=== PATIENT | female | born 1990 | race Caucasian/White ===

== ENCOUNTER 2017-03-04 22:24 | Emergency (ER) | payer MEDICAID ==
[~2017-03-04] VITALS: Ht 177.8 cm; Wt 127.0 kg
--- NOTE | 2017-03-04 22:32 | ER Report ---
History and Physical Time Seen By MD: 22:31 HPI/ROS CHIEF COMPLAINT: Right flank pain, right lower quadrant pain HISTORY OF PRESENT ILLNESS: 26-year-old female presents ambulatory to the ER complaining of right flank pain radiating to her right lower quadrant since this morning. Patient reports she has a history of several kidney stones. She notes some hematuria. She is status post hysterectomy. Patient also notes history of frequent recurrent UTIs. Patient notes 9/10 pain, colicky in nature. She notes no alleviating or exacerbating factors REVIEW OF SYSTEMS: Respiratory: No cough, no dyspnea. Cardiovascular: No chest pain, no palpitations. Gastrointestinal: As above Musculoskeletal: As above Allergies: Coded Allergies: NSAIDS (Non-Steroidal Anti-Inflamma (Verified Allergy, Mild, UNKNOWN, 03/04) cephalexin (Verified Allergy, Mild, RASH, 03/04/17) latex (Verified Allergy, Mild, RASH, 03/04/17) prednisone (Verified Allergy, Mild, HIVES, 03/04/17) Home Meds Active Scripts Hydrocodone Bit/Acetaminophen (NORCO 5-325 TABLET) 1 Each Tablet, 1 EACH PO Q4H Y for PAIN, #10 TAB Prov:CIPRIANO KERR DO 03/05/17 Reviewed Nurses Notes: Yes Old Medical Records Reviewed: Yes Constitutional Vital Sign - Last 24 Hours 03/04/17 03/04/17 03/04/17 03/04/17 22:32 23:40 23:45 23:55 Pulse 95 90 86 88 Resp 14 14 16 B/P (MAP) 145/101 (116) 158/99 (118) Pulse Ox 97 95 93 93 O2 Delivery Room Air Room Air Room Air 03/05/17 03/05/17 03/05/17 03/05/17 00:00 00:30 01:00 01:30 Pulse 85 85 B/P (MAP) 140/90 (107) 129/99 (109) 143/100 (114) Pulse Ox 92 94 03/05/17 02:01 Pulse 86 Resp 14 B/P (MAP) 150/90 (110) Pulse Ox 97 O2 Delivery Room Air Physical Exam General Appearance: The patient is alert, has no immediate need for airway protection and no current signs of toxicity. Eyes: Pupils equal and round no injection. Respiratory: Chest is non tender, lungs are clear to auscultation. Cardiac: regular rate and rhythm Gastrointestinal: Abdomen is soft and non tender, no masses, bowel sounds normal , Mild right lower quadrant tenderness, no rebound or guarding, Positive right CVA tenderness Musculoskeletal: Neck: Neck is supple and non tender. Extremities have full range of motion and are non tender. Skin: No rashes or lesions. DIFFERENTIAL DIAGNOSIS: After history and physical exam differential diagnosis was considered for flank pain including but not limited to musculoskeletal causes, kidney stone, pyelonephritis, shingles, and intra-abdominal causes such as diverticulitis and appendicitis. Additionally,abdominal pain including but not limited to appendicitis, cholecystitis, gastritis, ovarian cysts, ovarian rupture, and urinary tract infection. Medical Decision Making Data Points Result Diagram: 03/04/17224803/04/172248 Laboratory Hematology Test 03/04/17 22:31 03/04/17 22:49 Urine Color Yellow Urine Clarity Slightly-cloudy Urine pH 6.0 pH (4.8-9.5) Urine Specific [place] 1.006 Urine Protein Negative mg/dL (NEGATIVE) Urine Glucose (UA) Negative mg/dL (NEGATIVE) Urine Ketones Negative mg/dL (NEGATIVE) Urine Blood Large (NEGATIVE) Urine Nitrite Negative (NEGATIVE) Urine Bilirubin Negative (NEGATIVE) Urine Urobilinogen Negative mg/dL (0.2-1.9) Urine Leukocyte Esterase Negative (NEGATIVE) Urine RBC 204 /HPF (0-2/HPF) Urine WBC 1 /HPF (0-5/HPF) Urine Squamous Epithelial Cells Many /LPF (</=FEW) Urine Bacteria Few /HPF (NONE-FEW) Urine Mucus None /HPF (NONE-FEW) Urine HCG, Qualitative Negative (NEGATIVE) Red Blood Count 5.40 M/uL (4.17-5.56) Mean Corpuscular Volume 79.6 fL (80.0-96.0) Mean Corpuscular Hemoglobin 27.0 pg (26.0-33.0) Mean Corpuscular Hemoglobin Concent 33.9 g/dL (32.0-36.0) Red Cell Distribution Width 16.1 % (11.5-14.5) Mean Platelet Volume 7.1 fL (7.2-11.1) Neutrophils (%) (Auto) 68.9 % (39.4-72.5) Lymphocytes (%) (Auto) 23.1 % (17.6-49.6) Monocytes (%) (Auto) 6.0 % (4.1-12.4) Eosinophils (%) (Auto) 1.8 % (0.4-6.7) Basophils (%) (Auto) 0.2 % (0.3-1.4) Nucleated RBC Relative Count (auto) 0.1 /100WBC Neutrophils # (Auto) 9.6 K/uL (2.0-7.4) Lymphocytes # (Auto) 3.2 K/uL (1.3-3.6) Monocytes # (Auto) 0.8 K/uL (0.3-1.0) Eosinophils # (Auto) 0.2 K/uL (0.0-0.5) Basophils # (Auto) 0.0 K/uL (0.0-0.1) Nucleated RBC Absolute Count (auto) 0.01 K/uL Sodium Level 138 mmol/L (137-145) Potassium Level 3.4 mmol/L (3.5-5.0) Chloride Level 102 mmol/L (98-107) Carbon Dioxide Level 26 mmol/L (22-31) Blood Urea Nitrogen 5 mg/dl (7-18) Creatinine 0.70 mg/dl (0.52-1.04) Glomerular Filtration Rate Calc > 60.0 Random Glucose 94 mg/dl (75-110) Calcium Level 8.9 mg/dl (8.4-10.2) Total Bilirubin 0.4 mg/dl (0.2-1.3) Aspartate Amino Transf (AST/SGOT) 18 U/L (0-35) Alanine Aminotransferase (ALT/SGPT) 43 U/L (0-56) Alkaline Phosphatase 81 U/L (0-126) Total Protein 7.1 gm/dl (6.3-8.2) Albumin 3.8 g/dl (3.5-5.0) Amylase Level 57 U/L (0-110) Lipase 50 U/L (23-300) Chemistry Test 03/04/17 22:31 03/04/17 22:49 Urine Color Yellow Urine Clarity Slightly-cloudy Urine pH 6.0 pH (4.8-9.5) Urine Specific [place] 1.006 Urine Protein Negative mg/dL (NEGATIVE) Urine Glucose (UA) Negative mg/dL (NEGATIVE) Urine Ketones Negative mg/dL (NEGATIVE) Urine Blood Large (NEGATIVE) Urine Nitrite Negative (NEGATIVE) Urine Bilirubin Negative (NEGATIVE) Urine Urobilinogen Negative mg/dL (0.2-1.9) Urine Leukocyte Esterase Negative (NEGATIVE) Urine RBC 204 /HPF (0-2/HPF) Urine WBC 1 /HPF (0-5/HPF) Urine Squamous Epithelial Cells Many /LPF (</=FEW) Urine Bacteria Few /HPF (NONE-FEW) Urine Mucus None /HPF (NONE-FEW) Urine HCG, Qualitative Negative (NEGATIVE) White Blood Count 13.9 k/uL (4.5-11.0) Red Blood Count 5.40 M/uL (4.17-5.56) Hemoglobin 14.6 g/dL (12.0-16.0) Hematocrit 43.0 % (34.0-47.0) Mean Corpuscular Volume 79.6 fL (80.0-96.0) Mean Corpuscular Hemoglobin 27.0 pg (26.0-33.0) Mean Corpuscular Hemoglobin Concent 33.9 g/dL (32.0-36.0) Red Cell Distribution Width 16.1 % (11.5-14.5) Platelet Count 243 K/uL (150-450) Mean Platelet Volume 7.1 fL (7.2-11.1) Neutrophils (%) (Auto) 68.9 % (39.4-72.5) Lymphocytes (%) (Auto) 23.1 % (17.6-49.6) Monocytes (%) (Auto) 6.0 % (4.1-12.4) Eosinophils (%) (Auto) 1.8 % (0.4-6.7) Basophils (%) (Auto) 0.2 % (0.3-1.4) Nucleated RBC Relative Count (auto) 0.1 /100WBC Neutrophils # (Auto) 9.6 K/uL (2.0-7.4) Lymphocytes # (Auto) 3.2 K/uL (1.3-3.6) Monocytes # (Auto) 0.8 K/uL (0.3-1.0) Eosinophils # (Auto) 0.2 K/uL (0.0-0.5) Basophils # (Auto) 0.0 K/uL (0.0-0.1) Nucleated RBC Absolute Count (auto) 0.01 K/uL Glomerular Filtration Rate Calc > 60.0 Calcium Level 8.9 mg/dl (8.4-10.2) Total Bilirubin 0.4 mg/dl (0.2-1.3) Aspartate Amino Transf (AST/SGOT) 18 U/L (0-35) Alanine Aminotransferase (ALT/SGPT) 43 U/L (0-56) Alkaline Phosphatase 81 U/L (0-126) Total Protein 7.1 gm/dl (6.3-8.2) Albumin 3.8 g/dl (3.5-5.0) Amylase Level 57 U/L (0-110) Lipase 50 U/L (23-300) Urinalysis Test 03/04/17 22:31 Urine Color Yellow Urine Clarity Slightly-cloudy Urine pH 6.0 pH (4.8-9.5) Urine Specific [place] 1.006 Urine Protein Negative mg/dL (NEGATIVE) Urine Glucose (UA) Negative mg/dL (NEGATIVE) Urine Ketones Negative mg/dL (NEGATIVE) Urine Blood Large (NEGATIVE) Urine Nitrite Negative (NEGATIVE) Urine Bilirubin Negative (NEGATIVE) Urine Urobilinogen Negative mg/dL (0.2-1.9) Urine Leukocyte Esterase Negative (NEGATIVE) Urine RBC 204 /HPF (0-2/HPF) Urine WBC 1 /HPF (0-5/HPF) Urine Squamous Epithelial Cells Many /LPF (</=FEW) Urine Bacteria Few /HPF (NONE-FEW) Urine Mucus None /HPF (NONE-FEW) Urine HCG, Qualitative Negative (NEGATIVE) EKG/Imaging Imaging Results: CT scan of the abdomen and pelvis with IV contrast was obtained. The results of the study are COMPUTED TOMOGRAPHY ABDOMEN AND PELVIS WITH INTRAVENOUS CONTRAST DATE OF EXAM: 03/04/2017 11:14 PM INDICATION: Right flank pain. COMPARISON: None. TECHNIQUE: Contrast enhanced abdomen and pelvis CT performed during the injection of 75 ml of Isovue 370. Sagittal and coronal reconstructions were performed. One of the following dose optimization techniques was utilized in the performance of this exam: Automated exposure control; adjustment of the mA and/or kV according to the patient's size; or use of an iterative reconstruction technique. Specific details can be referenced in the facility's radiology CT exam operational policy. FINDINGS: Lung bases: Mild atelectasis. Liver and hepatic vasculature: Liver is moderately enlarged. No suspicious focal lesion or acute abnormality. Gallbladder and bile ducts: Normal. Spleen: Normal. Pancreas: Normal. Adrenals: Normal. Kidneys, ureters and bladder: Normal. Retroperitoneum and aorta: Normal. GI tract, mesentery and peritoneum: Normal, including normal appendix. Uterus and adnexa: Patient appears to have had a hysterectomy. There is a complex partially cystic structure in the pelvis that likely originates from the right adnexal area given that it appears to be associated with the right gonadal vein. No appreciable associated inflammatory change. The lesion measures approximately 6.2 x 5.1 cm. The dominant cystic component measures approximately 4.2 cm in diameter. Bones and soft tissues: No acute abnormality or suspicious lesion. Small fat- containing umbilical hernia. IMPRESSION: 1. Complex right adnexal lesion may represent an enlarged ovary with a dominant cystic component. In the setting of right-sided pain, torsion is a consideration. Recommend further evaluation with pelvic ultrasound. 2. Moderate hepatomegaly. Dr. Keller discussed this case with CIPRIANO KERR on 03/05/2017 12:22 AM. The study was read by the radiologist. I viewed the images myself on the PACS system. Results: Ultrasound of the pelvic ultrasound was obtained. The results of the study are Ultrasound of the pelvis: Indication: Right ovarian cyst. Evaluate for possible torsion. Technique: Transabdominal and transvaginal imaging, with Doppler. Comparison: CT scan dated 03/04/2017. Uterus: Surgically absent. Right ovary/adnexa: The right ovary measures 5.4 x 5.0 x 4.8 cm. A well- circumscribed cyst is present, measuring 4.5 x 4.2 x 4.2 cm. There is diffuse internal echogenicity within the cyst, suggesting hemorrhage. Doppler images demonstrate no evidence of flow signals within the cyst. Doppler evaluation of the unaffected right ovarian parenchyma demonstrates normal arterial and venous signals. There are no signs of ovarian torsion. No adnexal mass or fluid collection is identified. Left ovary/adnexa: The left ovary was removed. No adnexal mass or fluid collection is identified. Free fluid: None seen. IMPRESSION: 4.5 cm right ovarian cyst, which appears hemorrhagic. There are no signs of right ovarian torsion. The study was read by the radiologist. I viewed the images myself on the PACS system. ED Course/Re-evaluation ED Course Patient was admitted to an examination room. H&P was done. The dental diagnoses was considered. On clinical examination. Patient has significant right flank and right lower quadrant pain. Urinalysis has pink tinged urine with microscopic hematuria. Diagnostic evaluation is undertaken. CT scan is performed to evaluate for likely kidney stones from her clinical presentation. No kidney stones were noted. A large cystic right ovary was noted. Radiologist is concerned about possible torsion. Ultrasound is performed which shows a hemorrhagic ovarian cyst, no evidence of torsion. Patient's results are discussed with her. She feels better after Dilaudid 0.5 mg IV 2 and Zofran. She is unable to take NSAIDs. She is discharged home and advised to follow-up with her CERTIFIED ORTHOTIST PRACTICE MANAGER in [place]. Patient was given a prescription for hydrocodone for temporary pain relief. Decision to Disposition Date: Mar 05, 2017 Decision to Disposition Time: 01:49 Depart Departure Latest Vital Signs Vital Signs Date Time Temp Pulse Resp B/P (MAP) Pulse Ox O2 Delivery O2 Flow Rate FiO2 03/05/17 02:01 86 14 150/90 (110) 97 Room Air Impression: Primary Impression: Hemorrhagic cyst of right ovary Condition: Improved Disposition: HOME OR SELF-CARE New Scripts Hydrocodone Bit/Acetaminophen (NORCO 5-325 TABLET) 1 Each Tablet 1 EACH PO Q4H Y for PAIN, #10 TAB Prov: CIPRIANO KERR DO 03/05/17 Patient Instructions: Ovarian Cyst (ED) Additional Instructions: Apply heating pad to your abdomen Follow-up with your primary CERTIFIED ORTHOTIST PRACTICE MANAGER in [place] in one week CIPRIANO KERR DO Mar 04, 2017 22:31
[2017-03-04] MEDS ORDERED: NS(*) 0.9% 1000 ML BAG 1,000 ML IV ONE (22:37)
[2017-03-04] MEDS ORDERED: ONDANSETRON 4 MG/2 ML VIAL IVP ONE (22:40)
[2017-03-04] MEDS ORDERED: HYDROmorphone(ER ONLY) 1 MG/ML IVP ONE (22:40)
[2017-03-04 22:59] LABS: PLATELET COUNT, AUTOMATED 243 K/uL (150-450)
[2017-03-04] MEDS ORDERED: IOPAMIDOL 76% 75 ML INFUS BTL 75 ML ONE (23:19)
[2017-03-04] MEDS ORDERED: NS 0.9% 20 ML SDV 40 ML ONE (23:19)
[2017-03-04] MEDS ORDERED: NS 0.9% 20 ML SDV 20 ML ONE (23:25)
[2017-03-05] MEDS ORDERED: NS 0.9% 20 ML SDV 0 ML ONE (00:06)
--- NOTE | 2017-03-05 00:27 | RADIOLOGY IMAGING REPORT ---
FACILITY: [facility] PATIENT NAME: Madeleine Underwood : 1990 MR: [id number] V: [id number] EXAM DATE: ORDERING PHYSICIAN: CIPRIANO KERR TECHNOLOGIST: Location: [facility] Patient: Madeleine Underwood : 1990 Visit/Account:[id number] Date of Sevice: 03/04/2017 COMPUTED TOMOGRAPHY ABDOMEN AND PELVIS WITH INTRAVENOUS CONTRAST DATE OF EXAM: 03/04/2017 11:14 PM INDICATION: Right flank pain. COMPARISON: None. TECHNIQUE: Contrast enhanced abdomen and pelvis CT performed during the injection of 75 ml of Isovue 370. Sagittal and coronal reconstructions were performed. One of the following dose optimization te chniques was utilized in the performance of this exam: Automated exposure control; adjustment of the mA and/or kV according to the patient's size; or use of an iterative reconstruction technique. Spec [facility] details can be referenced in the facility's radiology CT exam operational policy. FINDINGS: Lung bases: Mild atelectasis. Liver and hepatic vasculature: Liver is moderately enlarged. No suspicious focal lesion or acute ab normality. Gallbladder and bile ducts: Normal. Spleen: Normal. Pancreas: Normal. Adrenals: Normal. Kidneys, ureters and bladder: Normal. Retroperitoneum and aorta: Normal. GI tract, mesentery and peritoneum: Normal, including normal appendix. Uterus and adnexa: Patient appears to have had a hysterectomy. There is a complex partially cystic s tructure in the pelvis that likely originates from the right adnexal area given that it appears to be associated with the right gonadal vein. No appreciable associated inflammatory change. The lesion measures approximately 6.2 x 5.1 cm. The dominant cystic component measures approximately 4.2 cm in diameter. Bones and soft tissues: No acute abnormality or suspicious lesion. Small fat-containing umbilical h ernia. IMPRESSION: 1. Complex right adnexal lesion may represent an enlarged ovary with a dominant cystic component. I n the setting of right-sided pain, torsion is a consideration. Recommend further evaluation with pel elo ultrasound. 2. Moderate hepatomegaly. Dr. Keller discussed this case with CIPRIANO KERR on 03/05/2017 12:22 AM. Report Dictated By: Fady Keller MD at 03/05/2017 12:11 AM Report E-Signed By: Fady Keller MD at 03/05/2017 12:22 AM WSN:[id number]
[2017-03-05] MEDS ORDERED: HYDROmorphone(ER ONLY) 1 MG/ML IVP ONE (00:45)
[2017-03-05] MEDS ORDERED: HYDR-4309 PO (01:51)
[2017-03-05] MEDS ORDERED: ACET/HYDROC 5/325MG TH ER ONLY 2 TAB/BOTTLE PO ONE (01:55)
[2017-03-05 02:01] VITALS: BP 150/90
--- NOTE | 2017-03-05 02:10 | RADIOLOGY IMAGING REPORT ---
FAC[place] [facility] [place]IENT NAME: Madeleine Underwood : 1990 MR: [id number] V: [id number] EXAM DATE: ORDERING PHYSICIAN: CIPRIANO KERR TECHNOLOGIST: Location: [facility] [place] Patient: Madeleine Underwood : 1990 Visit/Account:[id number] Date of Sevice: 03/05/2017 Ultrasound of the pelvis: Indication: Right ovarian cyst. Evaluate for possible torsion. Technique: Transabdominal and transvaginal imaging, with Doppler. Comparison: CT scan dated 03/04/2017. Uterus: Surgically absent. Right ovary/adnexa: The right ovary measures 5.4 x 5.0 x 4.8 cm. A well-circumscribed cyst is present , measuring 4.5 x 4.2 x 4.2 cm. There is diffuse internal echogenicity within the cyst, suggesting he morrhage. Doppler images demonstrate no evidence of flow signals within the cyst. Doppler evaluation of the unaffected right ovarian parenchyma demonstrates normal arterial and venous signals. There are no signs of ovarian torsion. No adnexal mass or fluid collection is identified. Left ovary/adnexa: The left ovary was removed. No adnexal mass or fluid collection is identified. Free fluid: None seen. IMPRESSION: 4.5 cm right ovarian cyst, which appears hemorrhagic. There are no signs of right ovarian torsion. Report Dictated By: Timothy Valdivia MD at 03/05/2017 1:58 AM Report E-Signed By: Timothy Valdivia MD at 03/05/2017 2:06 AM WSN:[id number]
== END 2017-03-05 02:02 | disposition home or self-care (01) ==
LOC: ER 22:28
DX: N83.201 Unspecified ovarian cyst, right side (principal)
CPT/HCPCS: 74177; 76856; 81001; 81025; 82150; 83690; 85025; 96361; 96374; 96375; 96376; 99284; J1170; J2405; J7030; J7050; Q9967; 82040; 82247; 82310; 82374; 82435; 82565; 82947; 84075; 84132; 84155; 84295; 84450; 84460; 84520

== ENCOUNTER 2017-03-29 00:25 | Emergency (ER) | payer MEDICAID ==
[~2017-03-29] VITALS: Ht 177.8 cm; Wt 133.8 kg
[~2017-03-29 00:25] MED LIST: HYDR-4309 PO
--- NOTE | 2017-03-29 00:36 | ER Report ---
History and Physical Time Seen By MD: 00:35 HPI/ROS CHIEF COMPLAINT: abdominal pain, frequent urination, possible infection in abdominal surgical incisions, cough. HISTORY OF PRESENT ILLNESS: This is a 26 year old female. She had surgery last Friday, 7 days ago, for right oophorectomy. Laparoscopic surgery. Had one of the stitches rupture on her umbilical incision. Also had a dog climb on her lap and the dogs foot dug into this area. States that it is painful and draining pus. The last 2 days has had severe lower suprapubic abdominal pain. States that she had frequent urination, every 30-60 minutes. Feels like she is having fevers and chills, but has had 7 days of upper respiratory symptoms including cough, runny nose, congestion, sore throat which have not been improving. Feels like she is having fevers off and on. Having some chronic constipation, but a normal bowel movement tonight. No nausea or vomiting. Has been trying to contact her surgeon, but unable over the last few days. Having some bruising on the left lower abdomen around one of the surgical incisions. REVIEW OF SYSTEMS: Constitutional: As above. Eyes: No discharge. No vision changes. ENT: As above. Cardiovascular: No chest pain. No palpitations. Respiratory: As above. Gastrointestinal: As above. Genitourinary: As above. Musculoskeletal: No back pain. No extremity pain. Skin: As above. Neurological: No weakness. No headache. Allergies: Coded Allergies: NSAIDS (Non-Steroidal Anti-Inflamma (Verified Allergy, Mild, UNKNOWN, 03/29) cephalexin (Verified Allergy, Mild, RASH, 03/29/17) latex (Verified Allergy, Mild, RASH, 03/29/17) prednisone (Verified Allergy, Mild, HIVES, 03/29/17) Home Meds Active Scripts Hydrocodone Bit/Acetaminophen (HYDROCODON-ACETAMINOPHEN 5-325) 1 Each Tablet, 1 EACH PO Q4H Y for PAIN, #8 TAB 0 Refills Prov:JOSE ALFREDO MARCOS MD 03/29/17 Amoxicillin (AMOXICILLIN) 500 Mg Capsule, 1 CAP PO Q8H, #21 CAPSULE 0 Refills Prov:JOSE ALFREDO MARCOS MD 03/29/17 Discontinued Scripts Hydrocodone Bit/Acetaminophen (NORCO 5-325 TABLET) 1 Each Tablet, 1 EACH PO Q4H Y for PAIN, #10 TAB Prov:CIPRIANO KERR DO 03/05/17 Reviewed Nurses Notes: Yes Hx Substance Use Disorder: No Hx Alcohol Use: No Constitutional Vital Sign - Last 24 Hours 03/29/17 03/29/17 03/29/17 03/29/17 00:25 00:31 00:33 00:55 Temp 97.5 Pulse ??? 98 92 Resp 18 B/P (MAP) 157/105 (122) 157/105 Pulse Ox 97 95 O2 Delivery Room Air 03/29/17 03/29/17 03/29/17 03/29/17 01:00 01:30 02:00 02:05 Pulse 93 B/P (MAP) 145/85 (105) 124/79 (94) 132/114 (120) Pulse Ox 93 03/29/17 03/29/17 03/29/17 03/29/17 03:00 03:30 03:35 03:46 Pulse 95 85 Resp 16 B/P (MAP) 159/109 (126) 144/85 (104) 132/85 (101) Pulse Ox 96 92 O2 Delivery Room Air Physical Exam General Appearance: The patient is alert. No acute distress. Non-toxic in appearance. Eyes: Pupils are equal, round. No pallor, injection or icterus. ENT: Mucous membranes are moist. Oral mucosa is sydnee, but posterior oropharynx with erythema and post nasal drainage. Nasal mucosa also erythematous. TM have effusions bilaterally, but no redness or bulging and canals are normal. Neck: Supple and non tender. Respiratory: Lungs are clear to auscultation. Cardiovascular: Regular rate and rhythm. No murmurs, gallops or rubs. Normal capillary refill. No edema. Gastrointestinal: Abdomen is diffusely discomfort, with tenderness across the suprapubic area. Nondistended. Guarding lower abdomen but no rebound. No masses or organomegaly. Normal active bowel sounds. No costovertebral angle tenderness with percussion. Neurological: Alert and oriented x3. Skin: Warm and dry. Has bruising left lower abdomen. Umbilical incision is tender to palpation with mild erythema surrounding. No active drainage at this time. Musculoskeletal: Extremities are nontender. DIFFERENTIAL DIAGNOSIS: After history and physical exam, differential diagnosis was considered for several different concerns, one that sounds like urinary infection after surgery, to abdominal pain which could be related to urinary infection or post surgical changes. We need to rule out abscess versus torsion versus other problem in the abdomen. She is also having continued symptoms of upper respiratory infection, likely viral syndrome versus influenza. Medical Decision Making Data Points Result Diagram: 03/29/17 0058 03/29/17 0058 Laboratory Hematology Test 03/29/17 00:27 03/29/17 00:58 Urine Color Straw Urine Clarity Clear Urine pH 6.0 pH (4.8-9.5) Urine Specific [place] 1.004 Urine Protein Negative mg/dL (NEGATIVE) Urine Glucose (UA) Negative mg/dL (NEGATIVE) Urine Ketones Negative mg/dL (NEGATIVE) Urine Blood Negative (NEGATIVE) Urine Nitrite Negative (NEGATIVE) Urine Bilirubin Negative (NEGATIVE) Urine Urobilinogen Negative mg/dL (0.2-1.9) Urine Leukocyte Esterase Negative (NEGATIVE) Urine RBC <1 /HPF (0-2/HPF) Urine WBC <1 /HPF (0-5/HPF) Urine Squamous Epithelial Cells Many /LPF (</=FEW) Urine Bacteria Few /HPF (NONE-FEW) Urine Mucus None /HPF (NONE-FEW) Red Blood Count 5.82 M/uL (4.17-5.56) Mean Corpuscular Volume 79.4 fL (80.0-96.0) Mean Corpuscular Hemoglobin 26.6 pg (26.0-33.0) Mean Corpuscular Hemoglobin Concent 33.5 g/dL (32.0-36.0) Red Cell Distribution Width 15.4 % (11.5-14.5) Mean Platelet Volume 7.0 fL (7.2-11.1) Neutrophils (%) (Auto) 68.8 % (39.4-72.5) Lymphocytes (%) (Auto) 21.3 % (17.6-49.6) Monocytes (%) (Auto) 6.7 % (4.1-12.4) Eosinophils (%) (Auto) 2.0 % (0.4-6.7) Basophils (%) (Auto) 1.2 % (0.3-1.4) Nucleated RBC Relative Count (auto) 0.0 /100WBC Neutrophils # (Auto) 8.6 K/uL (2.0-7.4) Lymphocytes # (Auto) 2.7 K/uL (1.3-3.6) Monocytes # (Auto) 0.8 K/uL (0.3-1.0) Eosinophils # (Auto) 0.3 K/uL (0.0-0.5) Basophils # (Auto) 0.1 K/uL (0.0-0.1) Nucleated RBC Absolute Count (auto) 0.00 K/uL Sodium Level 138 mmol/L (137-145) Potassium Level 3.6 mmol/L (3.5-5.0) Chloride Level 100 mmol/L (98-107) Carbon Dioxide Level 26 mmol/L (22-31) Blood Urea Nitrogen 9 mg/dl (7-18) Creatinine 0.80 mg/dl (0.52-1.04) Glomerular Filtration Rate Calc > 60.0 Random Glucose 98 mg/dl (75-110) Lactate 1.6 mmol/L (0.7-2.1) Calcium Level 9.2 mg/dl (8.4-10.2) Total Bilirubin 0.4 mg/dl (0.2-1.3) Aspartate Amino Transf (AST/SGOT) 23 U/L (0-35) Alanine Aminotransferase (ALT/SGPT) 42 U/L (0-56) Alkaline Phosphatase 85 U/L (0-126) C-Reactive Protein 1.4 mg/dl (<1.0) Total Protein 7.2 gm/dl (6.3-8.2) Albumin 3.8 g/dl (3.5-5.0) Human Chorionic Gonadotropin, Qual Negative (NEGATIVE) Influenza Virus Type A (PCR) Negative (NEGATIVE) Influenza Virus Type B (PCR) Negative (NEGATIVE) Chemistry Test 03/29/17 00:27 03/29/17 00:58 Urine Color Straw Urine Clarity Clear Urine pH 6.0 pH (4.8-9.5) Urine Specific [place] 1.004 Urine Protein Negative mg/dL (NEGATIVE) Urine Glucose (UA) Negative mg/dL (NEGATIVE) Urine Ketones Negative mg/dL (NEGATIVE) Urine Blood Negative (NEGATIVE) Urine Nitrite Negative (NEGATIVE) Urine Bilirubin Negative (NEGATIVE) Urine Urobilinogen Negative mg/dL (0.2-1.9) Urine Leukocyte Esterase Negative (NEGATIVE) Urine RBC <1 /HPF (0-2/HPF) Urine WBC <1 /HPF (0-5/HPF) Urine Squamous Epithelial Cells Many /LPF (</=FEW) Urine Bacteria Few /HPF (NONE-FEW) Urine Mucus None /HPF (NONE-FEW) White Blood Count 12.5 k/uL (4.5-11.0) Red Blood Count 5.82 M/uL (4.17-5.56) Hemoglobin 15.5 g/dL (12.0-16.0) Hematocrit 46.3 % (34.0-47.0) Mean Corpuscular Volume 79.4 fL (80.0-96.0) Mean Corpuscular Hemoglobin 26.6 pg (26.0-33.0) Mean Corpuscular Hemoglobin Concent 33.5 g/dL (32.0-36.0) Red Cell Distribution Width 15.4 % (11.5-14.5) Platelet Count 263 K/uL (150-450) Mean Platelet Volume 7.0 fL (7.2-11.1) Neutrophils (%) (Auto) 68.8 % (39.4-72.5) Lymphocytes (%) (Auto) 21.3 % (17.6-49.6) Monocytes (%) (Auto) 6.7 % (4.1-12.4) Eosinophils (%) (Auto) 2.0 % (0.4-6.7) Basophils (%) (Auto) 1.2 % (0.3-1.4) Nucleated RBC Relative Count (auto) 0.0 /100WBC Neutrophils # (Auto) 8.6 K/uL (2.0-7.4) Lymphocytes # (Auto) 2.7 K/uL (1.3-3.6) Monocytes # (Auto) 0.8 K/uL (0.3-1.0) Eosinophils # (Auto) 0.3 K/uL (0.0-0.5) Basophils # (Auto) 0.1 K/uL (0.0-0.1) Nucleated RBC Absolute Count (auto) 0.00 K/uL Glomerular Filtration Rate Calc > 60.0 Lactate 1.6 mmol/L (0.7-2.1) Calcium Level 9.2 mg/dl (8.4-10.2) Total Bilirubin 0.4 mg/dl (0.2-1.3) Aspartate Amino Transf (AST/SGOT) 23 U/L (0-35) Alanine Aminotransferase (ALT/SGPT) 42 U/L (0-56) Alkaline Phosphatase 85 U/L (0-126) C-Reactive Protein 1.4 mg/dl (<1.0) Total Protein 7.2 gm/dl (6.3-8.2) Albumin 3.8 g/dl (3.5-5.0) Human Chorionic Gonadotropin, Qual Negative (NEGATIVE) Influenza Virus Type A (PCR) Negative (NEGATIVE) Influenza Virus Type B (PCR) Negative (NEGATIVE) Urinalysis Test 03/29/17 00:27 Urine Color Straw Urine Clarity Clear Urine pH 6.0 pH (4.8-9.5) Urine Specific [place] 1.004 Urine Protein Negative mg/dL (NEGATIVE) Urine Glucose (UA) Negative mg/dL (NEGATIVE) Urine Ketones Negative mg/dL (NEGATIVE) Urine Blood Negative (NEGATIVE) Urine Nitrite Negative (NEGATIVE) Urine Bilirubin Negative (NEGATIVE) Urine Urobilinogen Negative mg/dL (0.2-1.9) Urine Leukocyte Esterase Negative (NEGATIVE) Urine RBC <1 /HPF (0-2/HPF) Urine WBC <1 /HPF (0-5/HPF) Urine Squamous Epithelial Cells Many /LPF (</=FEW) Urine Bacteria Few /HPF (NONE-FEW) Urine Mucus None /HPF (NONE-FEW) EKG/Imaging Imaging PORTABLE CHEST: Indication: Cough. Recent history of ovarian surgery. Technique: A single frontal film was obtained. Comparison: None. Skeletal and soft tissue structures: Intact and unremarkable. Heart and mediastinum: Within normal limits. Lung chaney: Well-expanded and clear. Pleural spaces: Unremarkable. Impression: No acute process. Report Dictated By: Timothy Valdivia MD at 03/29/2017 2:[address] of the abdomen and pelvis with contrast: Indication: Abdominal pain. Recent history of ovarian surgery. Technique: Helical CT was performed through the abdomen and pelvis following IV contrast enhancement with 75 cc of Isovue-370. Multiplanar reconstructions are reviewed. One of the following dose optimization techniques was utilized in the performance of this exam: Automated exposure control; adjustment of the mA and/ or kV according to the patient's size; or use of an iterative reconstruction technique. Specific details can be referenced in the facility's radiology CT exam operational policy. Comparison: 03/04/2017 Lower lung chaney: No parenchymal or pleural abnormality is identified. Liver: Enlarged, but homogeneous in density. No focal liver lesions are identified. There is uniform enhancement of the portal venous structures. Gallbladder/biliary tree: The gallbladder is normal in size and homogeneous in density. The bile ducts are normal in caliber. Pancreas: Normal in size, shape, and density. Spleen: Normal in size, shape, and density. Adrenal glands: Within normal limits. Kidneys/urinary bladder: The kidneys are normal in size, shape, and density. There are no signs of obstructive uropathy. The urinary bladder is homogeneous and unremarkable, as visualized. Intestinal structures: Unremarkable, as visualized. There are no signs of obstruction or focal inflammatory changes. The appendix appears normal. Pelvis: The previously described complex right adnexal mass is no longer present. The uterus is absent, as previously noted. There are no signs of inflammatory process, fluid collection, or free fluid in the pelvis. Aorta and vascular structures: Within normal limits. Ascites or fluid collections: None seen. Skeletal structures: Intact and unchanged. There are unremarkable postoperative changes in the lower abdominal wall. There are no signs of abdominal wall hematoma or fluid collection. Impression: No acute process is identified in the abdomen or pelvis. The previous study described complex right adnexal mass is no longer present. Report Dictated By: Timothy Valdivia MD at 03/29/2017 2:34 AM Ultrasound of the pelvis: Indication: Pelvic pain. Recent history of ovarian surgery. Technique: Transvaginal imaging, with Doppler. Comparison: 03/05/2017 Uterus: Absent. No mass or fluid collection is identified in the midline. Right ovary/adnexa: The right ovary is absent. No mass or fluid collection is identified. Left ovary/adnexa: The left ovary is absent. No mass or fluid collection is identified. Free fluid: None seen. IMPRESSION: No mass or fluid collection is identified in the pelvis. Report Dictated By: Timothy Valdivia MD at 03/29/2017 3:18 AM ED Course/Re-evaluation Clinical Indication for ER IV: Hydration, IV Access ED Course Mild elevation of white blood cell count. Mild elevation of CRP. Normal metabolic panel. Normal urinalysis. Negative influenza. Negative chest x-ray. No abnormalities noted on ultrasound or on CT scan. Morphine 2mg IV given for pain and Zofran 4mg IV given for nausea with the morphine. Reviewed findings with the patient and she will start on the Amoxicillin for the mild cellulitis around the umbilicus and follow-up with her surgeon for re-evaluation. Small prescription for Lortab to use for more severe pain. Decision to Disposition Date: Mar 29, 2017 Decision to Disposition Time: 03:40 Depart Departure Latest Vital Signs Vital Signs Date Time Temp Pulse Resp B/P (MAP) Pulse Ox O2 Delivery O2 Flow Rate FiO2 03/29/17 03:46 85 16 132/85 (101) 92 Room Air 03/29/17 00:33 97.5 Impression: Primary Impression: Cellulitis Additional Impression: Abdominal pain Condition: Improved Disposition: HOME OR SELF-CARE Referrals: WAGNER KING MD (PCP) New Scripts Hydrocodone Bit/Acetaminophen (HYDROCODON-ACETAMINOPHEN 5-325) 1 Each Tablet 1 EACH PO Q4H Y for PAIN, #8 TAB 0 Refills Prov: JOSE ALFREDO MARCOS MD 03/29/17 Amoxicillin (AMOXICILLIN) 500 Mg Capsule 1 CAP PO Q8H, #21 CAPSULE 0 Refills Prov: JOSE ALFREDO MARCOS MD 03/29/17 Patient Instructions: Abdominal Pain (ED), Cellulitis (ED) Additional Instructions: Call your regular doctor for reevaluation. Take the antibiotic Amoxicillin 500mg three times a day for 7 days. Wash the abdominal incision twice a day with soap and water. Keep clean and dry otherwise. Take Lortab 5/325, one every 4 hours as needed for pain. Problem Qualifiers Primary Impression: Cellulitis Site of cellulitis: trunk Site of cellulitis of trunk: abdominal wall Qualified Codes: L03.311 - Cellulitis of abdominal wall Additional Impression: Abdominal pain Abdominal location: lower abdomen, unspecified Qualified Codes: R10.30 - Lower abdominal pain, unspecified JOSE ALFREDO MARCOS MD Mar 29, 2017 00:36
[2017-03-29] MEDS ORDERED: NS(*) 0.9% 10 ML VIAL 20 ML ONE (00:54)
[2017-03-29] MEDS ORDERED: IOPAMIDOL 76% 75 ML INFUS BTL 75 ML ONE (00:54)
[2017-03-29 01:08] LABS: PLATELET COUNT, AUTOMATED 263 K/uL (150-450)
[2017-03-29] MEDS ORDERED: MORPHINE 2 MG/ML SYR IVP ONE (01:50)
[2017-03-29] MEDS ORDERED: ONDANSETRON 4 MG/2 ML VIAL IVP ONE (01:50)
--- NOTE | 2017-03-29 02:37 | RADIOLOGY IMAGING REPORT ---
FACILITY: [facility] - [place] PATIENT NAME: Madeleine Underwood : 1990 MR: [id number] V: [id number] EXAM DATE: ORDERING PHYSICIAN: JOSE ALFREDO MARCOS TECHNOLOGIST: Location: [facility] - [place] Patient: Madeleine Underwood : 1990 Visit/Account:[id number] Date of Sevice: 03/29/2017 PORTABLE CHEST: Indication: Cough. Recent history of ovarian surgery. Technique: A single frontal film was obtained. Comparison: None. Skeletal and soft tissue structures: Intact and unremarkable. Heart and mediastinum: Within normal limits. Lung chaney: Well-expanded and clear. Pleural spaces: Unremarkable. Impression: No acute process. Report Dictated By: Timothy Valdivia MD at 03/29/2017 2:32 AM Report E-Signed By: Timothy Valdivia MD at 03/29/2017 2:34 AM WSN:[id number]
--- NOTE | 2017-03-29 02:49 | RADIOLOGY IMAGING REPORT ---
FACILITY: [facility] - [place] PATIENT NAME: Madeleine Underwood : 1990 MR: [id number] V: [id number] EXAM DATE: ORDERING PHYSICIAN: JOSE ALFREDO MARCOS TECHNOLOGIST: [place] [facility] [place]: Madeleine Underwood : 1990 Visit/Account:[id number] Date of Sevice: 03/29/2017 CT of the abdomen and pelvis with contrast: Indication: Abdominal pain. Recent history of ovarian surgery. Technique: Helical CT was performed through the abdomen and pelvis following IV contrast enhancement with 75 cc of Isovue-370. Multiplanar reconstructions are reviewed. One of the following dose optimization techniques was utilized in the performance of this exam: Autom ated exposure control; adjustment of the mA and/or kV according to the patient's size; or use of an i terative reconstruction technique. Specific details can be referenced in the facility's radiology C T exam operational policy. Comparison: 03/04/2017 Lower lung chaney: No parenchymal or pleural abnormality is identified. Liver: Enlarged, but homogeneous in density. No focal liver lesions are identified. There is uniform enhancement of the portal venous structures. Gallbladder/biliary tree: The gallbladder is normal in size and homogeneous in density. The bile duct s are normal in caliber. Pancreas: Normal in size, shape, and density. Spleen: Normal in size, shape, and density. Adrenal glands: Within normal limits. Kidneys/urinary bladder: The kidneys are normal in size, shape, and density. There are no signs of ob structive uropathy. The urinary bladder is homogeneous and unremarkable, as visualized. Intestinal structures: Unremarkable, as visualized. There are no signs of obstruction or focal inflam matory changes. The appendix appears normal. Pelvis: The previously described complex right adnexal mass is no longer present. The uterus is absen t, as previously noted. There are no signs of inflammatory process, fluid collection, or free fluid i n the pelvis. Aorta and vascular structures: Within normal limits. Ascites or fluid collections: None seen. Skeletal structures: Intact and unchanged. There are unremarkable postoperative changes in the lower abdominal wall. There are no signs of abdom inal wall hematoma or fluid collection. Impression: No acute process is identified in the abdomen or pelvis. The previous study described com plex right adnexal mass is no longer present. Report Dictated By: Timothy Valdivia MD at 03/29/2017 2:34 AM Report E-Signed By: Timothy Valdivia MD at 03/29/2017 2:45 AM WSN:[id number]
--- NOTE | 2017-03-29 03:24 | RADIOLOGY IMAGING REPORT ---
FACILITY: [facility] PATIENT NAME: Madeleine Underwood : 1990 MR: [id number] V: [id number] EXAM DATE: ORDERING PHYSICIAN: JOSE ALFREDO MARCOS TECHNOLOGIST: Location: [facility] Patient: Madeleine Underwood : 1990 Visit/Account:[id number] Date of Sevice: 03/29/2017 Ultrasound of the pelvis: Indication: Pelvic pain. Recent history of ovarian surgery. Technique: Transvaginal imaging, with Doppler. Comparison: 03/05/2017 Uterus: Absent. No mass or fluid collection is identified in the midline. Right ovary/adnexa: The right ovary is absent. No mass or fluid collection is identified. Left ovary/adnexa: The left ovary is absent. No mass or fluid collection is identified. Free fluid: None seen. IMPRESSION: No mass or fluid collection is identified in the pelvis. Report Dictated By: Timothy Valdivia MD at 03/29/2017 3:18 AM Report E-Signed By: Timothy Valdivia MD at 03/29/2017 3:21 AM WSN:[id number]
[2017-03-29] MEDS ORDERED: ACET/HYDROC 5/325MG TH ER ONLY 2 TAB/BOTTLE PO ONE (03:40)
[2017-03-29] MEDS ORDERED: AMOXICILLIN 500 MG CAP PO ONE (03:40)
[2017-03-29] MEDS ORDERED: AMOX-362 PO (03:43)
[2017-03-29] MEDS ORDERED: LOR5/325 PO (03:43)
[2017-03-29 03:46] VITALS: BP 132/85
== END 2017-03-29 03:50 | disposition home or self-care (01) ==
LOC: ER 00:31
DX: L03.311 Cellulitis of abdominal wall (principal); R10.30 Lower abdominal pain, unspecified
CPT/HCPCS: 71045; 74177; 76830; 81001; 83605; 84703; 85025; 86140; 87502; 96374; 96375; 99284; J2270; J2405; Q9967; 82040; 82247; 82310; 82374; 82435; 82565; 82947; 84075; 84132; 84155; 84295; 84450; 84460; 84520

== ENCOUNTER 2017-06-09 17:45 | Emergency (ER) | payer MEDICAID ==
[~2017-06-09 17:45] MED LIST changes: +AMOX-362 PO; +LOR5/325 PO
[2017-06-09 18:58] VITALS: BP 142/96
--- NOTE | 2017-06-09 18:58 | ER Report ---
History and Physical Time Seen By MD: 18:57 HPI/ROS CHIEF COMPLAINT: Toothache HISTORY OF PRESENT ILLNESS: 26-year-old female is ambulatory complaining of right lower jaw pain. She has a history of a severe infection of her left lower jaw in the distant past. Patient was recently diagnosed with ovarian cancer. Patient notes no fever or chills. Patient denies any difficulty swallowing. She's complaining of severe toothache in the right lower jaw for 3 days. Patient notes severe nausea, but she's had no vomiting. REVIEW OF SYSTEMS: Respiratory: No cough, no dyspnea. Cardiovascular: No chest pain, no palpitations. Gastrointestinal: No vomiting, no abdominal pain. Musculoskeletal: No back pain. Allergies: Coded Allergies: NSAIDS (Non-Steroidal Anti-Inflamma (Verified Allergy, Mild, UNKNOWN, 06/09) cephalexin (Verified Allergy, Mild, RASH, 06/09/17) latex (Verified Allergy, Mild, RASH, 06/09/17) prednisone (Verified Allergy, Mild, HIVES, 06/09/17) Home Meds Active Scripts Ondansetron Hcl (ZOFRAN) 4 Mg Tablet, 4 MG PO Q6H for nausea and vomiting, #10 Prov:CIPRIANO KERR DO 06/09/17 Hydrocodone Bit/Acetaminophen (NORCO 5-325 TABLET) 1 Each Tablet, 1 EACH PO Q4H Y for PAIN, #15 TAB Prov:CIPRIANO KERR DO 06/09/17 Amoxicillin 500 Mg Tab (AMOXICILLIN 500 MG TAB) 500 Mg Tablet, 1 TAB PO TID, # 30 TAB Prov:CIPRIANO KERR DO 06/09/17 Hydrocodone Bit/Acetaminophen (HYDROCODON-ACETAMINOPHEN 5-325) 1 Each Tablet, 1 EACH PO Q4H Y for PAIN, #8 TAB 0 Refills Prov:JOSE ALFREDO MARCOS MD 03/29/17 Amoxicillin (AMOXICILLIN) 500 Mg Capsule, 1 CAP PO Q8H, #21 CAPSULE 0 Refills Prov:JOSE ALFREDO MARCOS MD 03/29/17 Reviewed Nurses Notes: Yes Old Medical Records Reviewed: Yes Hx Substance Use Disorder: No Hx Alcohol Use: No Constitutional Vital Sign - Last 24 Hours 06/09/17 18:58 Temp 98.8 Pulse 87 Resp 14 B/P (MAP) 142/96 Pulse Ox 100 O2 Delivery Room Air Physical Exam General Appearance: The patient is alert, has no immediate need for airway protection and no current signs of toxicity. Vital signs stable, afebrile, pulse ox normal HEENT: Pupils equal and round no injection. TMs normal, TMJs, oropharynx, examination of the right lower jaw shows tooth with dental inflammation. Respiratory: Chest is non tender, lungs are clear to auscultation. Cardiac: regular rate and rhythm Gastrointestinal: Abdomen is soft and non tender, no masses, bowel sounds normal. Musculoskeletal: Neck: Neck is supple and non tender. No lymphadenopathy, no induration. Neck tissues Extremities have full range of motion and are non tender. Skin: No rashes or lesions. DIFFERENTIAL DIAGNOSIS: After history and physical exam differential diagnosis was considered for dental abscess, dental Joan, toothache, TMJ disorder, sinus infection, metastatic disease Medical Decision Making ED Course/Re-evaluation ED Course Patient was admitted to an examination room. H&P was done. The differential diagnoses was considered. On clinical examination. Patient has a toothache. Patient be covered with amoxicillin. She'll be given a limited supply of [place]. For temporary pain relief. She is unable to take NSAIDs. Patient advised to follow-up with dentist as soon as possible. Decision to Disposition Date: Jun 09, 2017 Decision to Disposition Time: 19:03 Depart Departure Latest Vital Signs Vital Signs Date Time Temp Pulse Resp B/P (MAP) Pulse Ox O2 Delivery O2 Flow Rate FiO2 06/09/17 18:58 98.8 87 14 142/96 100 Room Air Impression: Primary Impression: Abscessed tooth Additional Impression: History of ovarian cancer Condition: Improved Disposition: HOME OR SELF-CARE Referrals: WAGNER KING MD (PCP) New Scripts Ondansetron Hcl (ZOFRAN) 4 Mg Tablet 4 MG PO Q6H for nausea and vomiting, #10 Prov: CIPRIANO KERR DO 06/09/17 Hydrocodone Bit/Acetaminophen (NORCO 5-325 TABLET) 1 Each Tablet 1 EACH PO Q4H Y for PAIN, #15 TAB Prov: CIPRIANO KERR DO 06/09/17 Amoxicillin 500 Mg Tab (AMOXICILLIN 500 MG TAB) 500 Mg Tablet 1 TAB PO TID, #30 TAB Prov: CIPRIANO KERR DO 06/09/17 Patient Instructions: Dental Abscess (ED) Additional Instructions: Take antibiotic as needed Follow-up with dentist as soon as possible Problem Qualifiers CIPRIANO KERR DO Jun 09, 2017 18:58
[2017-06-09] MEDS ORDERED: AMOX500T10 PO (19:06)
[2017-06-09] MEDS ORDERED: HYDR-4309 PO (19:06)
[2017-06-09] MEDS ORDERED: ONDA4TAB97 PO (19:09)
== END 2017-06-09 19:14 | disposition home or self-care (01) ==
LOC: ER 19:04
DX: K04.7 Periapical abscess without sinus (principal)
CPT/HCPCS: 99282

== ENCOUNTER 2017-06-14 15:31 | Emergency (ER) | payer MEDICAID ==
[~2017-06-14 15:31] MED LIST changes: +AMOX500T10 PO; +ONDA4TAB97 PO
[2017-06-14] MEDS ORDERED: CLIN300C99 PO (16:00)
--- NOTE | 2017-06-14 16:00 | ER Report ---
History and Physical Time Seen By MD: 15:39 Hx. of Stated Complaint: PT REPORTS INFECTION IN TOOTH IS WORSE, CAN'T SEE DENTIST UNTIL 07/11 HPI/ROS CHIEF COMPLAINT: Mouth pain/tooth pain HISTORY OF PRESENT ILLNESS: Patient is a 18-year-old female presents to ED with complaint of mouth and tooth pain. She states that she was seen in the emergency room 5 days ago for this and was sinus with a dental abscess and has started amoxicillin. She states that she does have an appointment with her dentist in the next 2 weeks. She states that she had surgery noticed some pain along her lower gumline now. She has noticed a little bit of white pus at times. She denies any fever. REVIEW OF SYSTEMS: Respiratory: No cough, no dyspnea. Cardiovascular: No chest pain, no palpitations. Gastrointestinal: No vomiting, no abdominal pain. Musculoskeletal: No back pain. Allergies: Coded Allergies: NSAIDS (Non-Steroidal Anti-Inflamma (Verified Allergy, Mild, UNKNOWN, ) cephalexin (Verified Allergy, Mild, RASH, 06/14/17) latex (Verified Allergy, Mild, RASH, 06/14/17) prednisone (Verified Allergy, Mild, HIVES, 06/14/17) Home Meds Active Scripts Clindamycin Hcl (CLINDAMYCIN HCL) 300 Mg Capsule, 300 MG PO Q6H, #40 CAPSULE Prov:BRYCE WOODWARD PA-C 06/14/17 Amoxicillin 500 Mg Tab (AMOXICILLIN 500 MG TAB) 500 Mg Tablet, 1 TAB PO TID, # 30 TAB Prov:CIPRIANO KERR DO 06/09/17 Discontinued Scripts Ondansetron Hcl (ZOFRAN) 4 Mg Tablet, 4 MG PO Q6H for nausea and vomiting, #10 Prov:CIPRIANO KERR DO 06/09/17 Hydrocodone Bit/Acetaminophen (NORCO 5-325 TABLET) 1 Each Tablet, 1 EACH PO Q4H Y for PAIN, #15 TAB Prov:CIPRIANO KERR DO 06/09/17 Hydrocodone Bit/Acetaminophen (HYDROCODON-ACETAMINOPHEN 5-325) 1 Each Tablet, 1 EACH PO Q4H Y for PAIN, #8 TAB 0 Refills Prov:JOSE ALFREDO MARCOS MD 03/29/17 Amoxicillin (AMOXICILLIN) 500 Mg Capsule, 1 CAP PO Q8H, #21 CAPSULE 0 Refills Prov:JOSE ALFREDO MARCOS MD 03/29/17 Reviewed Nurses Notes: Yes Old Medical Records Reviewed: Yes Hx Substance Use Disorder: No Hx Alcohol Use: No Constitutional Vital Sign - Last 24 Hours 06/14/17 06/14/17 15:37 16:08 Temp 98.2 Pulse 96 101 Resp 16 16 B/P (MAP) 153/101 148/107 (121) Pulse Ox 95 92 O2 Delivery Room Air Room Air Physical Exam General Appearance: The patient is alert, has no immediate need for airway protection and no signs of toxicity. Patient appears to be in no acute distress. ENT, Mouth: Poor dentition throughout. There is some mild inflammation and erythema of the gums of the lower teeth. There is some pain particularly with palpation of the left premolar area tooth. No significant facial swelling identified. No exudate or discharge appreciated. Respiratory: There are no retractions, lungs are clear to auscultation. Cardiovascular: Regular rate and rhythm. Skin: Warm and dry, no rashes. Musculoskeletal: Neck is supple non tender. Extremities are nontender, nonswollen and have full range of motion. Medical Decision Making ED Course/Re-evaluation ED Course This with patient that this appears to be a dental-type infection. It could be more of a gum infection at this point. Will have her discontinue amoxicillin and start clindamycin. She is to follow-up with her dentist as soon as possible. Decision to Disposition Date: June 14, 2017 Decision to Disposition Time: 15:59 Depart Departure Latest Vital Signs Vital Signs Date Time Temp Pulse Resp B/P (MAP) Pulse Ox O2 Delivery O2 Flow Rate FiO2 06/14/17 16:08 101 16 148/107 (121) 92 Room Air 06/14/17 15:37 98.2 Impression: Primary Impression: Dental infection Condition: Improved Disposition: HOME OR SELF-CARE New Scripts Hydrocodone Bit/Acetaminophen (NORCO 5-325 TABLET) 1 Each Tablet 1 EACH PO Q4-6H Y for PAIN, #6 TAB Prov: BRYCE WOODWARD PA-C 06/14/17 Clindamycin Hcl (CLINDAMYCIN HCL) 300 Mg Capsule 300 MG PO Q6H, #40 CAPSULE Prov: BRYCE WOODWARD PA-C 06/14/17 Patient Instructions: Toothache (ED) Additional Instructions: Stay well-hydrated. Follow-up with dentist as soon as possible. If any worsening or concerning symptoms may return to the emergency department. BRYCE WOODWARD PA-C June 14, 2017 16:00
[2017-06-14 16:08] VITALS: BP 148/107
[2017-06-14] MEDS ORDERED: HYDR-4309 PO (16:22)
== END 2017-06-14 16:03 | disposition home or self-care (01) ==
LOC: ER 15:45
DX: K04.7 Periapical abscess without sinus (principal)
CPT/HCPCS: 99282

== ENCOUNTER 2017-07-05 22:13 | Emergency (ER) | payer MEDICAID ==
[~2017-07-05 22:13] MED LIST changes: +CLIN300C99 PO
--- NOTE | 2017-07-05 22:23 | ER Report ---
History and Physical Time Seen By MD: 22:23 Hx. of Stated Complaint: patient states she started having trouble urinating since yesterday, it feels like she isn't emptying her bladder, she had blood in urine and having bilateral flank pain. HPI/ROS TCHIEF COMPLAINT: trouble urinating, flank and abdominal pain. HISTORY OF PRESENT ILLNESS: This is a 26 year old female. She is having dysuria and feeling like she cannot completely empty her bladder and describes a "pulling" sensation in her bladder. She has had a little blood in the urine as well. History of kidney stones and infections in the past. Having some back and flank pain as well, worse on the right side. Lower abdominal pain as well. No fevers. No problems with bowels. Tried to contact her urologist, but given the holiday weekend, was unable to, so came to the ER for evaluation. Past hysterectomy. REVIEW OF SYSTEMS: Constitutional: No fevers. Eyes: No vision changes. ENT: No sore throat. No congestion. Cardiovascular: No chest pain. Respiratory: No shortness of breath. Gastrointestinal: As above. Genitourinary: As above. Musculoskeletal: No other pain. Skin: No rashes. Neurological: No numbness. No headache. Allergies: Coded Allergies: NSAIDS (Non-Steroidal Anti-Inflamma (Verified Allergy, Mild, UNKNOWN, 07/05) cephalexin (Verified Allergy, Mild, RASH, 07/05/17) latex (Verified Allergy, Mild, RASH, 07/05/17) prednisone (Verified Allergy, Mild, HIVES, 07/05/17) Home Meds Active Scripts Hydrocodone Bit/Acetaminophen (HYDROCODON-ACETAMINOPHEN 5-325) 1 Each Tablet, 1 EACH PO Q4H Y for PAIN, #8 TAB 0 Refills Prov:JOSE ALFREDO MARCOS MD 07/06/17 Sulfamethoxazole/Trimet 800-160 Mg Tab (BACTRIM DS TABLET) 1 Each Tablet, 1 TAB PO Q12H, #14 TAB 0 Refills Prov:JOSE ALFREDO MARCOS MD 07/06/17 Discontinued Scripts Hydrocodone Bit/Acetaminophen (NORCO 5-325 TABLET) 1 Each Tablet, 1 EACH PO Q4- 6H Y for PAIN, #6 TAB Prov:BRYCE WOODWARD PA-C 06/14/17 Clindamycin Hcl (CLINDAMYCIN HCL) 300 Mg Capsule, 300 MG PO Q6H, #40 CAPSULE Prov:TRACEBRYCE Downey PA-C 06/14/17 Amoxicillin 500 Mg Tab (AMOXICILLIN 500 MG TAB) 500 Mg Tablet, 1 TAB PO TID, # 30 TAB Prov:CIPRIANO KERR 06/09/17 Reviewed Nurses Notes: Yes Hx Substance Use Disorder: No Hx Alcohol Use: No Constitutional Vital Sign - Last 24 Hours 07/05/17 07/05/17 07/05/17 07/05/17 22:18 22:28 22:30 22:43 Temp 98.1 Pulse 101 101 99 Resp 16 B/P (MAP) 139/104 127/100 (109) Pulse Ox 94 95 95 O2 Delivery Room Air 07/05/17 07/05/17 07/05/17 07/05/17 22:58 23:13 23:28 23:33 Pulse 90 86 86 B/P (MAP) 130/86 (101) Pulse Ox 93 93 91 07/05/17 07/05/17 07/05/17 07/06/17 23:43 23:48 23:53 00:23 Pulse 92 95 85 ??? Pulse Ox 92 91 91 88 07/06/17 07/06/17 07/06/17 07/06/17 00:30 00:38 00:43 01:00 Pulse 73 83 B/P (MAP) 135/102 (113) 136/91 (106) Pulse Ox 91 93 Physical Exam General Appearance: The patient is alert. No acute distress. Eyes: Pupils are equal, round. No pallor, injection or icterus. ENT: Mucous membranes are moist. Neck: Supple and non tender. Respiratory: Lungs are clear to auscultation. Cardiovascular: Regular rate and rhythm. No murmurs, gallops or rubs. Gastrointestinal: Abdomen shows tenderness in the suprapubic area. Nondistended. Guarding. Normal active bowel sounds. Has right CVA tenderness. Neurological: Alert and oriented x3. Skin: Warm and dry. No rashes. Musculoskeletal: No tenderness in palpation of the midline, thoracic and lumbar spine. DIFFERENTIAL DIAGNOSIS: After history and physical exam, differential diagnosis was considered for flank pain including but not limited to musculoskeletal causes, kidney stone, pyelonephritis, shingles, and intra-abdominal causes such as diverticulitis and appendicitis. Medical Decision Making Data Points Result Diagram: 07/05/17224707/05/172247 Laboratory Hematology Test 07/05/17 22:16 07/05/17 22:48 Urine Color Yellow Urine Clarity Cloudy Urine pH 5.0 pH (4.8-9.5) Urine Specific [place] 1.021 Urine Protein Negative mg/dL (NEGATIVE) Urine Glucose (UA) Negative mg/dL (NEGATIVE) Urine Ketones Negative mg/dL (NEGATIVE) Urine Blood Negative (NEGATIVE) Urine Nitrite Negative (NEGATIVE) Urine Bilirubin Negative (NEGATIVE) Urine Urobilinogen 2.0 mg/dL (0.2-1.9) Urine Leukocyte Esterase Small (NEGATIVE) Urine RBC 3 /HPF (0-2/HPF) Urine WBC 18 /HPF (0-5/HPF) Urine Squamous Epithelial Cells Many /LPF (</=FEW) Urine Bacteria Few /HPF (NONE-FEW) Urine Mucus Few /HPF (NONE-FEW) Red Blood Count 5.58 M/uL (4.17-5.56) Mean Corpuscular Volume 80.4 fL (80.0-96.0) Mean Corpuscular Hemoglobin 27.3 pg (26.0-33.0) Mean Corpuscular Hemoglobin Concent 34.0 g/dL (32.0-36.0) Red Cell Distribution Width 14.6 % (11.5-14.5) Mean Platelet Volume 7.3 fL (7.2-11.1) Neutrophils (%) (Auto) 67.0 % (39.4-72.5) Lymphocytes (%) (Auto) 24.0 % (17.6-49.6) Monocytes (%) (Auto) 6.2 % (4.1-12.4) Eosinophils (%) (Auto) 1.8 % (0.4-6.7) Basophils (%) (Auto) 1.0 % (0.3-1.4) Nucleated RBC Relative Count (auto) 0.0 /100WBC Neutrophils # (Auto) 8.4 K/uL (2.0-7.4) Lymphocytes # (Auto) 3.0 K/uL (1.3-3.6) Monocytes # (Auto) 0.8 K/uL (0.3-1.0) Eosinophils # (Auto) 0.2 K/uL (0.0-0.5) Basophils # (Auto) 0.1 K/uL (0.0-0.1) Nucleated RBC Absolute Count (auto) 0.00 K/uL Sodium Level 141 mmol/L (137-145) Potassium Level 3.5 mmol/L (3.5-5.0) Chloride Level 102 mmol/L (98-107) Carbon Dioxide Level 24 mmol/L (22-31) Blood Urea Nitrogen 10 mg/dl (7-18) Creatinine 0.90 mg/dl (0.52-1.04) Glomerular Filtration Rate Calc > 60.0 Random Glucose 104 mg/dl (75-110) Calcium Level 9.6 mg/dl (8.4-10.2) Total Bilirubin 0.5 mg/dl (0.2-1.3) Aspartate Amino Transf (AST/SGOT) 23 U/L (0-35) Alanine Aminotransferase (ALT/SGPT) 47 U/L (0-56) Alkaline Phosphatase 89 U/L (0-126) Total Protein 7.4 gm/dl (6.3-8.2) Albumin 4.1 g/dl (3.5-5.0) Chemistry Test 07/05/17 22:16 07/05/17 22:48 Urine Color Yellow Urine Clarity Cloudy Urine pH 5.0 pH (4.8-9.5) Urine Specific [place] 1.021 Urine Protein Negative mg/dL (NEGATIVE) Urine Glucose (UA) Negative mg/dL (NEGATIVE) Urine Ketones Negative mg/dL (NEGATIVE) Urine Blood Negative (NEGATIVE) Urine Nitrite Negative (NEGATIVE) Urine Bilirubin Negative (NEGATIVE) Urine Urobilinogen 2.0 mg/dL (0.2-1.9) Urine Leukocyte Esterase Small (NEGATIVE) Urine RBC 3 /HPF (0-2/HPF) Urine WBC 18 /HPF (0-5/HPF) Urine Squamous Epithelial Cells Many /LPF (</=FEW) Urine Bacteria Few /HPF (NONE-FEW) Urine Mucus Few /HPF (NONE-FEW) White Blood Count 12.6 k/uL (4.5-11.0) Red Blood Count 5.58 M/uL (4.17-5.56) Hemoglobin 15.3 g/dL (12.0-16.0) Hematocrit 44.9 % (34.0-47.0) Mean Corpuscular Volume 80.4 fL (80.0-96.0) Mean Corpuscular Hemoglobin 27.3 pg (26.0-33.0) Mean Corpuscular Hemoglobin Concent 34.0 g/dL (32.0-36.0) Red Cell Distribution Width 14.6 % (11.5-14.5) Platelet Count 255 K/uL (150-450) Mean Platelet Volume 7.3 fL (7.2-11.1) Neutrophils (%) (Auto) 67.0 % (39.4-72.5) Lymphocytes (%) (Auto) 24.0 % (17.6-49.6) Monocytes (%) (Auto) 6.2 % (4.1-12.4) Eosinophils (%) (Auto) 1.8 % (0.4-6.7) Basophils (%) (Auto) 1.0 % (0.3-1.4) Nucleated RBC Relative Count (auto) 0.0 /100WBC Neutrophils # (Auto) 8.4 K/uL (2.0-7.4) Lymphocytes # (Auto) 3.0 K/uL (1.3-3.6) Monocytes # (Auto) 0.8 K/uL (0.3-1.0) Eosinophils # (Auto) 0.2 K/uL (0.0-0.5) Basophils # (Auto) 0.1 K/uL (0.0-0.1) Nucleated RBC Absolute Count (auto) 0.00 K/uL Glomerular Filtration Rate Calc > 60.0 Calcium Level 9.6 mg/dl (8.4-10.2) Total Bilirubin 0.5 mg/dl (0.2-1.3) Aspartate Amino Transf (AST/SGOT) 23 U/L (0-35) Alanine Aminotransferase (ALT/SGPT) 47 U/L (0-56) Alkaline Phosphatase 89 U/L (0-126) Total Protein 7.4 gm/dl (6.3-8.2) Albumin 4.1 g/dl (3.5-5.0) Urinalysis Test 07/05/17 22:16 Urine Color Yellow Urine Clarity Cloudy Urine pH 5.0 pH (4.8-9.5) Urine Specific [place] 1.021 Urine Protein Negative mg/dL (NEGATIVE) Urine Glucose (UA) Negative mg/dL (NEGATIVE) Urine Ketones Negative mg/dL (NEGATIVE) Urine Blood Negative (NEGATIVE) Urine Nitrite Negative (NEGATIVE) Urine Bilirubin Negative (NEGATIVE) Urine Urobilinogen 2.0 mg/dL (0.2-1.9) Urine Leukocyte Esterase Small (NEGATIVE) Urine RBC 3 /HPF (0-2/HPF) Urine WBC 18 /HPF (0-5/HPF) Urine Squamous Epithelial Cells Many /LPF (</=FEW) Urine Bacteria Few /HPF (NONE-FEW) Urine Mucus Few /HPF (NONE-FEW) EKG/Imaging Imaging EXAMINATION: CT abdomen with IV contrast CT pelvis with IV contrast HISTORY: Abdominal pain. Flank pain. Dysuria. TECHNIQUE: Spiral scan was through the abdomen and pelvis during injection of nonionic iodinated intravenous contrast. Sagittal and coronal reformatted images are also submitted. One of the following dose optimization techniques was utilized in the performance of this exam: Automated exposure control; adjustment of the mA and/ or kV according to the patient's size; or use of an iterative reconstruction technique. Specific details can be referenced in the facility's radiology CT exam operational policy. CONTRAST: 75 mL of IV Isovue-370 COMPARISON: 03/29/2017. FINDINGS: Lower chest: Negative. Liver / biliary: Hepatic steatosis. Otherwise negative. Pancreas: Negative. Spleen: Negative. Adrenal glands: Negative. Kidneys: Negative. Pelvic structures: Hysterectomy. Otherwise negative. Bowel: Normal appendix. No obstruction or bowel wall thickening. Peritoneum / retroperitoneum / mesenteries: Negative. Vessels: Negative. Musculoskeletal / Body wall: Mild degenerative changes in the spine with minimal retrolisthesis of and L2 over L3, L3 over L4, and L4 over L5. No aggressive osseous lesions. Disc spaces. Lymph node assessment: Negative. IMPRESSION: No acute abnormality in the abdomen or pelvis. Report Dictated By: Cosme Yu MD at 07/06/2017 1:17 AM ED Course/Re-evaluation Clinical Indication for ER IV: Hydration, IV Access ED Course Patient was given 2 doses of Morphine for pain during her visit. Zofran 4mg IV for nausea. 1 liter of normal saline. CT scan negative. Urinalysis with sings of UTI. Started Bactrim, Pyridium, and Lortab for pain. Decision to Disposition Date: July 06, 2017 Decision to Disposition Time: 01:36 Depart Departure Latest Vital Signs Vital Signs Date Time Temp Pulse Resp B/P (MAP) Pulse Ox O2 Delivery O2 Flow Rate FiO2 07/06/17 01:00 136/91 (106) 07/06/17 00:43 83 93 07/05/17 22:18 98.1 16 Room Air Impression: Primary Impression: Urinary tract infection Condition: Improved Disposition: HOME OR SELF-CARE New Scripts Hydrocodone Bit/Acetaminophen (HYDROCODON-ACETAMINOPHEN 5-325) 1 Each Tablet 1 EACH PO Q4H Y for PAIN, #8 TAB 0 Refills Prov: JOSE ALFREDO MARCOS MD 07/06/17 Sulfamethoxazole/Trimet 800-160 Mg Tab (BACTRIM DS TABLET) 1 Each Tablet 1 TAB PO Q12H, #14 TAB 0 Refills Prov: JOSE ALFREDO MARCOS MD 07/06/17 Patient Instructions: Urinary Tract Infection in Women (ED) Problem Qualifiers Primary Impression: Urinary tract infection Urinary tract infection type: acute cystitis Hematuria presence: with hematuria Qualified Codes: N30.01 - Acute cystitis with hematuria JOSE ALFREDO MARCOS MD July 05, 2017 22:23
[2017-07-05] MEDS ORDERED: NS(*) 0.9% 1000 ML BAG 1,000 ML IV ONE (22:35)
[2017-07-05] MEDS ORDERED: ONDANSETRON 4 MG/2 ML VIAL IVP ONE (22:35)
[2017-07-05] MEDS ORDERED: MORPHINE 4 MG/ML SDV IVP ONE ×2 (22:35→23:30)
[2017-07-05 23:02] LABS: PLATELET COUNT, AUTOMATED 255 K/uL (150-450)
[2017-07-05] MEDS ORDERED: IOPAMIDOL 76% 75 ML INFUS BTL 75 ML ONE (23:55)
[2017-07-06 01:30] VITALS: BP 132/91
--- NOTE | 2017-07-06 01:31 | RADIOLOGY IMAGING REPORT ---
FAC[place] [facility] [place] NAME: Madeleine Underwood : 1990 MR: [id number] V: [id number] EXAM DATE: ORDERING PHYSICIAN: JOSE ALFREDO MARCOS TECHNOLOGIST: Location: [facility] Patient: Madeleine Underwood : 1990 Visit/Account:[id number] Date of Sevice: 07/05/2017 EXAMINATION: CT abdomen with IV contrast CT pelvis with IV contrast HISTORY: Abdominal pain. Flank pain. Dysuria. TECHNIQUE: Spiral scan was through the abdomen and pelvis during injection of nonionic iodinated in travenous contrast. Sagittal and coronal reformatted images are also submitted. One of the following dose optimization techniques was utilized in the performance of this exam: Autom ated exposure control; adjustment of the mA and/or kV according to the patient's size; or use of an i terative reconstruction technique. Specific details can be referenced in the facility's radiology C T exam operational policy. CONTRAST: 75 mL of IV Isovue-370 COMPARISON: 03/29/2017. FINDINGS: Lower chest: Negative. Liver / biliary: Hepatic steatosis. Otherwise negative. Pancreas: Negative. Spleen: Negative. Adrenal glands: Negative. Kidneys: Negative. Pelvic structures: Hysterectomy. Otherwise negative. Bowel: Normal appendix. No obstruction or bowel wall thickening. Peritoneum / retroperitoneum / mesenteries: Negative. Vessels: Negative. Musculoskeletal / Body wall: Mild degenerative changes in the spine with minimal retrolisthesis of an d L2 over L3, L3 over L4, and L4 over L5. No aggressive osseous lesions. Disc spaces. Lymph node assessment: Negative. IMPRESSION: No acute abnormality in the abdomen or pelvis. Report Dictated By: Cosme Yu MD at 07/06/2017 1:17 AM Report E-Signed By: Cosme Yu MD at 07/06/2017 1:27 AM WSN:[id number]
[2017-07-06] MEDS ORDERED: SULF-198 PO (01:38)
[2017-07-06] MEDS ORDERED: LOR5/325 PO (01:38)
[2017-07-06] MEDS ORDERED: PHENAZOPYRIDINE 200 MG TAB TH 2 TAB/BOTTLE PO ONE (01:40)
[2017-07-06] MEDS ORDERED: ACET/HYDROC 5/325MG TH ER ONLY 2 TAB/BOTTLE PO ONE (01:40)
[2017-07-06] MEDS ORDERED: TRIMETH/SULFA DS 160-800MG TAB PO ONE (01:40)
== END 2017-07-06 01:50 | disposition home or self-care (01) ==
LOC: ER 22:31
DX: N30.01 Acute cystitis with hematuria (principal)
CPT/HCPCS: 74177; 81001; 85025; 87088; 96361; 96374; 96375; 96376; 99284; J2270; J2405; J7030; Q9967; 82040; 82247; 82310; 82374; 82435; 82565; 82947; 84075; 84132; 84155; 84295; 84450; 84460; 84520

== ENCOUNTER 2017-07-11 18:01 | Emergency (ER) | payer MEDICAID ==
[~2017-07-11 18:01] MED LIST changes: +SULF-198 PO
--- NOTE | 2017-07-11 18:13 | ER Report ---
History and Physical Time Seen By : 18:13 HPI/ROS CHIEF COMPLAINT: blood in urine HISTORY OF PRESENT ILLNESS: This is a 26 year old female. She has a history of bladder infections and kidney stones. She is still having the same pulling sensation in suprapubic area as well as pulling pain sensation when she urinates. She saw her regular doctor who switched her from Bactrim to Keflex. Culture done in the ER at the last visit was contaminated. She has an appointment to establish care with Dr. Vogel in one week on Friday. No fevers. No problems with bowels. No back pain. Allergies: Coded Allergies: NSAIDS (Non-Steroidal Anti-Inflamma (Verified Allergy, Mild, UNKNOWN, 07/05) latex (Verified Allergy, Mild, RASH, 07/05/17) prednisone (Verified Allergy, Mild, HIVES, 07/05/17) Home Meds Active Scripts Ondansetron (ZOFRAN ODT) 4 Mg Tab.rapdis, 4 MG PO Q6H Y for NAUSEA/VOMITING, # 20 TAB.MARAL 0 Refills Prov:JOSE ALFREDO MARCOS MD 07/11/17 Tramadol Hcl (TRAMADOL HCL) 50 Mg Tablet, 50 MG PO Q6H Y for PAIN, #14 TAB 0 Refills Prov:JOSE ALFREDO MARCOS MD 07/11/17 Discontinued Scripts Hydrocodone Bit/Acetaminophen (HYDROCODON-ACETAMINOPHEN 5-325) 1 Each Tablet, 1 EACH PO Q4H Y for PAIN, #8 TAB 0 Refills Prov:JOSE ALFREDO MARCOS MD 07/06/17 Sulfamethoxazole/Trimet 800-160 Mg Tab (BACTRIM DS TABLET) 1 Each Tablet, 1 TAB PO Q12H, #14 TAB 0 Refills Prov:JOSE ALFREDO MARCOS MD 07/06/17 Hydrocodone Bit/Acetaminophen (NORCO 5-325 TABLET) 1 Each Tablet, 1 EACH PO Q4- 6H Y for PAIN, #6 TAB Prov:BRYCE WOODWARD PA-C 06/14/17 Clindamycin Hcl (CLINDAMYCIN HCL) 300 Mg Capsule, 300 MG PO Q6H, #40 CAPSULE Prov:BRYCE WOODWARD PA-C 06/14/17 Amoxicillin 500 Mg Tab (AMOXICILLIN 500 MG TAB) 500 Mg Tablet, 1 TAB PO TID, # 30 TAB Prov:CIPRIANO KERR DO 06/09/17 Reviewed Nurses Notes: Yes Hx Substance Use Disorder: No Hx Alcohol Use: No Constitutional Vital Sign - Last 24 Hours 07/11/17 07/11/17 07/11/17 07/11/17 18:10 18:10 18:16 18:30 Temp 98.4 Pulse 102 97 Resp 20 B/P (MAP) 145/102 (116) 145/102 135/94 (108) Pulse Ox 97 95 O2 Delivery Room Air 07/11/17 07/11/17 07/11/17 07/11/17 18:31 18:46 19:00 19:01 Pulse 94 88 85 B/P (MAP) 119/84 (96) Pulse Ox 96 95 94 07/11/17 07/11/17 07/11/17 07/11/17 19:16 19:30 19:31 19:46 Pulse 86 85 91 B/P (MAP) 134/95 (108) Pulse Ox 96 96 95 07/11/17 07/11/17 07/11/17 07/11/17 19:51 20:00 20:21 20:30 Pulse 80 93 B/P (MAP) 142/95 (111) 132/103 (113) Pulse Ox 98 92 07/11/17 07/11/17 07/11/17 20:51 20:56 21:00 Pulse 92 84 B/P (MAP) 133/98 (110) Pulse Ox 91 91 Physical Exam General Appearance: Alert, no acute distress. Respiratory: Lungs are clear to auscultation. Cardiac: regular rate and rhythm Gastrointestinal: Abdomen is soft, discomfort in the suprapubic area, bowel sounds normal. Musculoskeletal: No flank pain or back pain. Skin: no rashes or bruising. DIFFERENTIAL DIAGNOSIS: After history and physical exam differential diagnosis was considered for hematuria and suprapubic pain. Will plan renal ultrasound and obtain catheter urine sample. Will give Zofran and NS IV at this time and obtain blood work as well. Medical Decision Making Data Points Result Diagram: 07/11/17183507/11/171835 Laboratory Hematology Test 07/11/17 17:39 07/11/17 18:36 Urine Color Cele Urine Clarity Cloudy Urine pH 6.0 pH (4.8-9.5) Urine Specific [place] 1.023 Urine Protein 30 mg/dL (NEGATIVE) Urine Glucose (UA) Negative mg/dL (NEGATIVE) Urine Ketones Negative mg/dL (NEGATIVE) Urine Blood Large (NEGATIVE) Urine Nitrite Negative (NEGATIVE) Urine Bilirubin Negative (NEGATIVE) Urine Urobilinogen 2.0 mg/dL (0.2-1.9) Urine Leukocyte Esterase Trace (NEGATIVE) Urine RBC 601 /HPF (0-2/HPF) Urine WBC 58 /HPF (0-5/HPF) Urine Squamous Epithelial Cells Many /LPF (</=FEW) Urine Calcium Oxalate Crystals Many /HPF (NONE) Urine Bacteria Many /HPF (NONE-FEW) Urine Mucus Few /HPF (NONE-FEW) Red Blood Count 5.69 M/uL (4.17-5.56) Mean Corpuscular Volume 80.5 fL (80.0-96.0) Mean Corpuscular Hemoglobin 27.5 pg (26.0-33.0) Mean Corpuscular Hemoglobin Concent 34.1 g/dL (32.0-36.0) Red Cell Distribution Width 14.9 % (11.5-14.5) Mean Platelet Volume 7.4 fL (7.2-11.1) Neutrophils (%) (Auto) 65.4 % (39.4-72.5) Lymphocytes (%) (Auto) 24.3 % (17.6-49.6) Monocytes (%) (Auto) 7.2 % (4.1-12.4) Eosinophils (%) (Auto) 2.3 % (0.4-6.7) Basophils (%) (Auto) 0.8 % (0.3-1.4) Nucleated RBC Relative Count (auto) 0.0 /100WBC Neutrophils # (Auto) 7.6 K/uL (2.0-7.4) Lymphocytes # (Auto) 2.8 K/uL (1.3-3.6) Monocytes # (Auto) 0.8 K/uL (0.3-1.0) Eosinophils # (Auto) 0.3 K/uL (0.0-0.5) Basophils # (Auto) 0.1 K/uL (0.0-0.1) Nucleated RBC Absolute Count (auto) 0.01 K/uL Prothrombin Time 13.3 seconds (12.0-14.4) Prothromb Time International Ratio 1.01 Activated Partial Thromboplast Time 32 seconds (23-35) Sodium Level 139 mmol/L (137-145) Potassium Level 3.9 mmol/L (3.5-5.0) Chloride Level 100 mmol/L (98-107) Carbon Dioxide Level 28 mmol/L (22-31) Blood Urea Nitrogen 9 mg/dl (7-18) Creatinine 0.90 mg/dl (0.52-1.04) Glomerular Filtration Rate Calc > 60.0 Random Glucose 92 mg/dl (75-110) Calcium Level 9.6 mg/dl (8.4-10.2) Total Bilirubin 0.5 mg/dl (0.2-1.3) Aspartate Amino Transf (AST/SGOT) 27 U/L (0-35) Alanine Aminotransferase (ALT/SGPT) 56 U/L (0-56) Alkaline Phosphatase 95 U/L (0-126) Total Protein 7.4 gm/dl (6.3-8.2) Albumin 4.2 g/dl (3.5-5.0) Chemistry Test 07/11/17 17:39 07/11/17 18:36 Urine Color Cele Urine Clarity Cloudy Urine pH 6.0 pH (4.8-9.5) Urine Specific [place] 1.023 Urine Protein 30 mg/dL (NEGATIVE) Urine Glucose (UA) Negative mg/dL (NEGATIVE) Urine Ketones Negative mg/dL (NEGATIVE) Urine Blood Large (NEGATIVE) Urine Nitrite Negative (NEGATIVE) Urine Bilirubin Negative (NEGATIVE) Urine Urobilinogen 2.0 mg/dL (0.2-1.9) Urine Leukocyte Esterase Trace (NEGATIVE) Urine RBC 601 /HPF (0-2/HPF) Urine WBC 58 /HPF (0-5/HPF) Urine Squamous Epithelial Cells Many /LPF (</=FEW) Urine Calcium Oxalate Crystals Many /HPF (NONE) Urine Bacteria Many /HPF (NONE-FEW) Urine Mucus Few /HPF (NONE-FEW) White Blood Count 11.6 k/uL (4.5-11.0) Red Blood Count 5.69 M/uL (4.17-5.56) Hemoglobin 15.7 g/dL (12.0-16.0) Hematocrit 45.8 % (34.0-47.0) Mean Corpuscular Volume 80.5 fL (80.0-96.0) Mean Corpuscular Hemoglobin 27.5 pg (26.0-33.0) Mean Corpuscular Hemoglobin Concent 34.1 g/dL (32.0-36.0) Red Cell Distribution Width 14.9 % (11.5-14.5) Platelet Count 245 K/uL (150-450) Mean Platelet Volume 7.4 fL (7.2-11.1) Neutrophils (%) (Auto) 65.4 % (39.4-72.5) Lymphocytes (%) (Auto) 24.3 % (17.6-49.6) Monocytes (%) (Auto) 7.2 % (4.1-12.4) Eosinophils (%) (Auto) 2.3 % (0.4-6.7) Basophils (%) (Auto) 0.8 % (0.3-1.4) Nucleated RBC Relative Count (auto) 0.0 /100WBC Neutrophils # (Auto) 7.6 K/uL (2.0-7.4) Lymphocytes # (Auto) 2.8 K/uL (1.3-3.6) Monocytes # (Auto) 0.8 K/uL (0.3-1.0) Eosinophils # (Auto) 0.3 K/uL (0.0-0.5) Basophils # (Auto) 0.1 K/uL (0.0-0.1) Nucleated RBC Absolute Count (auto) 0.01 K/uL Prothrombin Time 13.3 seconds (12.0-14.4) Prothromb Time International Ratio 1.01 Activated Partial Thromboplast Time 32 seconds (23-35) Glomerular Filtration Rate Calc > 60.0 Calcium Level 9.6 mg/dl (8.4-10.2) Total Bilirubin 0.5 mg/dl (0.2-1.3) Aspartate Amino Transf (AST/SGOT) 27 U/L (0-35) Alanine Aminotransferase (ALT/SGPT) 56 U/L (0-56) Alkaline Phosphatase 95 U/L (0-126) Total Protein 7.4 gm/dl (6.3-8.2) Albumin 4.2 g/dl (3.5-5.0) Coagulation Test 07/11/17 18:36 Prothrombin Time 13.3 seconds Prothromb Time International Ratio 1.01 Activated Partial Thromboplast Time 32 seconds Urinalysis Test 07/11/17 17:39 Urine Color Cele Urine Clarity Cloudy Urine pH 6.0 pH (4.8-9.5) Urine Specific [place] 1.023 Urine Protein 30 mg/dL (NEGATIVE) Urine Glucose (UA) Negative mg/dL (NEGATIVE) Urine Ketones Negative mg/dL (NEGATIVE) Urine Blood Large (NEGATIVE) Urine Nitrite Negative (NEGATIVE) Urine Bilirubin Negative (NEGATIVE) Urine Urobilinogen 2.0 mg/dL (0.2-1.9) Urine Leukocyte Esterase Trace (NEGATIVE) Urine RBC 601 /HPF (0-2/HPF) Urine WBC 58 /HPF (0-5/HPF) Urine Squamous Epithelial Cells Many /LPF (</=FEW) Urine Calcium Oxalate Crystals Many /HPF (NONE) Urine Bacteria Many /HPF (NONE-FEW) Urine Mucus Few /HPF (NONE-FEW) EKG/Imaging Imaging Examination: Ultrasound of the kidneys and urinary bladder Comparison: None. History: hematuria Findings: Standard ultrasound of the kidneys and urinary bladder is performed. Right kidney: 11.7 x 4.4 x 6.0 cm . Corticomedullary echogenicity is normal. No renal mass, echogenic stone, or hydronephrosis. Left kidney: 12.0 x 4.7 x 4.1 cm . Corticomedullary echogenicity is normal. No renal mass, echogenic stone, or hydronephrosis. Urinary bladder: Both ureteral jets are present. 3 mL post void residual. IMPRESSION: Negative ultrasound of the kidneys and urinary bladder. Report Dictated By: Neftaly Squires MD at 07/11/2017 8:31 PM ED Course/Re-evaluation Clinical Indication for ER IV: Hydration, IV Access ED Course Laboratory studies were unremarkable other than very mild elevation of white count without differential change. She did provide a clean catch urine sample but refused a urine catheterization, which I informed her that her urologist would want have done. We will keep her on the Keflex as without acute good urine test, I don't want to start yet a third antibiotic. She will follow-up with Dr. Vogel on Friday. Decision to Disposition Date: Jul 11, 2017 Decision to Disposition Time: 20:53 Depart Departure Latest Vital Signs Vital Signs Date Time Temp Pulse Resp B/P (MAP) Pulse Ox O2 Delivery O2 Flow Rate FiO2 07/11/17 21:00 133/98 (110) 07/11/17 20:56 84 91 07/11/17 18:10 98.4 20 Room Air Impression: Primary Impression: Hematuria Condition: Improved Disposition: HOME OR SELF-CARE New Scripts Ondansetron (ZOFRAN ODT) 4 Mg Tab.rapdis 4 MG PO Q6H Y for NAUSEA/VOMITING, #20 TAB.MARAL 0 Refills Prov: JOSE ALFREDO MARCOS MD 07/11/17 Tramadol Hcl (TRAMADOL HCL) 50 Mg Tablet 50 MG PO Q6H Y for PAIN, #14 TAB 0 Refills Prov: JOSE ALFREDO MARCOS MD 07/11/17 Patient Instructions: Hematuria (ED) Additional Instructions: Follow-up with Dr. Vogel as planned. Keep taking the Keflex until you see him. We will run a urine culture on the clean catch urine sample that you provided. We do not want to change the antibiotic until Dr. Vogel see's you and he will likely need to get a urine sample by catheter as we talked about. Take Tramadol 50mg, one every 6 hours as needed for pain. Also use Tylenol 500mg tablets, 1-2 every 6 hours as needed for pain. Problem Qualifiers Primary Impression: Hematuria Hematuria type: unspecified type Qualified Codes: R31.9 - Hematuria, unspecified JOSE ALFREDO MARCOS MD Jul 11, 2017 18:13
[2017-07-11] MEDS ORDERED: ONDANSETRON 4 MG/2 ML VIAL IVP ONE (18:25)
[2017-07-11] MEDS ORDERED: NS(*) 0.9% 1000 ML BAG 1,000 ML IV ONE (18:25)
[2017-07-11 18:46] LABS: PLATELET COUNT, AUTOMATED 245 K/uL (150-450)
[2017-07-11 18:52] LABS: INR 1.01
[2017-07-11] MEDS ORDERED: ACETAMINOPHEN 500 MG TAB PO ONE (19:00)
[2017-07-11] MEDS ORDERED: MORPHINE 4 MG/ML SDV IVP ONE (20:15)
--- NOTE | 2017-07-11 20:38 | RADIOLOGY IMAGING REPORT ---
[place] [facility] [place] NAME: Madeleine Underwood : 1990 MR: [id number] V: [id number] EXAM DATE: ORDERING PHYSICIAN: JOSE ALFREDO MARCOS TECHNOLOGIST: Location: [facility] [place] Patient: Madeleine Underwood : 1990 Visit/Account:[id number] Date of Sevice: 07/11/2017 Examination: Ultrasound of the kidneys and urinary bladder Comparison: None. History: hematuria Findings: Standard ultrasound of the kidneys and urinary bladder is performed. Right kidney: 11.7 x 4.4 x 6.0 cm . Corticomedullary echogenicity is normal. No renal mass, echogeni c stone, or hydronephrosis. Left kidney: 12.0 x 4.7 x 4.1 cm . Corticomedullary echogenicity is normal. No renal mass, echogenic stone, or hydronephrosis. Urinary bladder: Both ureteral jets are present. 3 mL post void residual. IMPRESSION: Negative ultrasound of the kidneys and urinary bladder. Report Dictated By: Neftaly Squires MD at 07/11/2017 8:31 PM Report E-Signed By: Neftaly Squires MD at 07/11/2017 8:35 PM [id number]
[2017-07-11] MEDS ORDERED: traMADol 50 MG TAB TH 2 TAB/BOTTLE PO ONE (20:55)
[2017-07-11] MEDS ORDERED: TRAM-420 PO (20:56)
[2017-07-11 21:00] VITALS: BP 133/98
[2017-07-11] MEDS ORDERED: ONDA4TAB PO (21:03)
[2017-07-11] MEDS ORDERED: ONDANSETRON 4 MG ODT TH SL ONE (21:05)
== END 2017-07-11 21:10 | disposition home or self-care (01) ==
LOC: ER 18:10
DX: R31.9 Hematuria, unspecified (principal)
CPT/HCPCS: 76705; 81001; 85025; 85610; 85730; 87088; 96361; 96374; 96375; 99284; A4353; C9399; J2270; J2405; J7030; S0119; 82040; 82247; 82310; 82374; 82435; 82565; 82947; 84075; 84132; 84155; 84295; 84450; 84460; 84520

== ENCOUNTER 2017-09-08 16:22 | Emergency (ER) | payer MEDICAID ==
[~2017-09-08 16:22] MED LIST changes: +ONDA4TAB PO; +TRAM-420 PO
--- NOTE | 2017-09-08 16:47 | ER Report ---
History and Physical Time Seen By MD: 16:47 (MAHSA JONES DO) HPI/ROS CHIEF COMPLAINT: flank pain R HISTORY OF PRESENT ILLNESS: PT states that she has burning pain in right flank area that started suddenly yesterday. pt states she passed two kidney stones last night. Still wtih the pain dispite passing stones. Pt states that when she urinates she has a burning and pulling sensation. pt states she has hx of uti and kidney stones and is followed by Dr. Vogel, urology. Pt denie sfevers. no nausea. is to see kati Oct 21. REVIEW OF SYSTEMS: Constitutional: No fever, no chills. Eyes: No discharge. ENT: No sore throat. Cardiovascular: No chest pain, no palpitations. Respiratory: No cough, no shortness of breath. Gastrointestinal: + superperubic abdominal pain, no vomiting. Genitourinary: + hematuria, + dysuria Musculoskeletal: + r flank back pain. Skin: No rashes. Neurological: No headache. (MAHSA JONES DO) Allergies: Coded Allergies: NSAIDS (Non-Steroidal Anti-Inflamma (Verified Allergy, Mild, UNKNOWN, 07/05) latex (Verified Allergy, Mild, RASH, 07/05/17) prednisone (Verified Allergy, Mild, HIVES, 07/05/17) Home Meds Active Scripts Oxycodone Hcl/Acetaminophen (PERCOCET 5-325 MG TABLET) 1 Each Tablet, 1 EACH PO Q4H Y for PAIN, #8 TAB 0 Refills Prov:JOSE ALFREDO MARCOS MD 09/08/17 Sulfamethoxazole/Trimet 800-160 Mg Tab (BACTRIM DS TABLET) 1 Each Tablet, 1 TAB PO Q12H, #10 TAB 0 Refills Prov:JOSE ALFREDO MARCOS MD 09/08/17 Ondansetron (ZOFRAN ODT) 4 Mg Tab.rapdis, 4 MG PO Q6H Y for NAUSEA/VOMITING, # 20 TAB.MARAL 0 Refills Prov:JOSE ALFREDO MARCOS MD 07/11/17 Tramadol Hcl (TRAMADOL HCL) 50 Mg Tablet, 50 MG PO Q6H Y for PAIN, #14 TAB 0 Refills Prov:JOSE ALFREDO MARCOS MD 07/11/17 Past Medical/Surgical History pmhx: kidney stones Pshx: , hyster and oopherectomy, tonsilectomy (MAHSA JONES V ) Reviewed Nurses Notes: Yes Old Medical Records Reviewed: Yes (MAHSA JONES V DO) Smoking Status: Current: Every Day Smoker Hx Substance Use Disorder: No Hx Alcohol Use: No (MAHSA JONES V DO) Constitutional Vital Sign - Last 24 Hours 09/08/17 09/08/17 09/08/17 09/08/17 16:52 16:57 16:59 17:00 Temp 98.4 Pulse 100 94 B/P (MAP) 139/83 (101) 145/103 156/93 (114) Pulse Ox 93 96 09/08/17 09/08/17 09/08/17 09/08/17 17:02 17:30 17:47 18:00 Pulse 96 89 B/P (MAP) 145/103 (117) 145/93 (110) Pulse Ox 96 94 09/08/17 18:02 Pulse 82 Pulse Ox 92 (JOSE ALFREDO MARCOS MD) Physical Exam General Appearance: The patient is alert, has no immediate need for airway protection and no signs of toxicity. Eyes: Pupils equal and round no pallor or injection, EOMI ENT: no pharyngeal erythema or exudates, Mucous membranes are moist Respiratory: There are no retractions, lungs are clear to auscultation. Cardiovascular: Regular rate and rhythm. pulses are equal and symmetrical Gastrointestinal: Abdomen is soft and non tender, no masses, bowel sounds normal, no guarding, no rigidity or rebound Neurological: Cranial nerves II-XII grossly intact, no sensory or motor loss Skin: Warm and dry, no rashes. Musculoskeletal: Neck is supple non tender, no vertebral tenderness, + r cva tenderness Extremities are nontender, nonswollen and have full range of motion. DIFFERENTIAL DIAGNOSIS: After history and physical exam differential diagnosis was considered for kidney stone, pyelonephritis, uti (MAHSA JONES V ) Medical Decision Making Data Points Result Diagram: 09/08/17 1720 09/08/17 1720 Laboratory Hematology Test 09/08/17 16:55 09/08/17 17:20 Urine Color Yellow Urine Clarity Slightly-cloudy Urine pH 6.0 pH (4.8-9.5) Urine Specific [place] 1.011 Urine Protein Negative mg/dL (NEGATIVE) Urine Glucose (UA) Negative mg/dL (NEGATIVE) Urine Ketones Negative mg/dL (NEGATIVE) Urine Blood Large (NEGATIVE) Urine Nitrite Negative (NEGATIVE) Urine Bilirubin Negative (NEGATIVE) Urine Urobilinogen Negative mg/dL (0.2-1.9) Urine Leukocyte Esterase Negative (NEGATIVE) Urine RBC 133 /HPF (0-2/HPF) Urine WBC 1 /HPF (0-5/HPF) Urine Squamous Epithelial Cells Many /LPF (</=FEW) Urine Bacteria Few /HPF (NONE-FEW) Urine Mucus None /HPF (NONE-FEW) Urine HCG, Qualitative Negative (NEGATIVE) Red Blood Count 5.41 M/uL (4.17-5.56) Mean Corpuscular Volume 81.6 fL (80.0-96.0) Mean Corpuscular Hemoglobin 28.4 pg (26.0-33.0) Mean Corpuscular Hemoglobin Concent 34.8 g/dL (32.0-36.0) Red Cell Distribution Width 14.2 % (11.5-14.5) Mean Platelet Volume 7.7 fL (7.2-11.1) Neutrophils (%) (Auto) 67.4 % (39.4-72.5) Lymphocytes (%) (Auto) 23.9 % (17.6-49.6) Monocytes (%) (Auto) 5.5 % (4.1-12.4) Eosinophils (%) (Auto) 2.2 % (0.4-6.7) Basophils (%) (Auto) 1.0 % (0.3-1.4) Nucleated RBC Relative Count (auto) 0.1 /100WBC Neutrophils # (Auto) 7.3 K/uL (2.0-7.4) Lymphocytes # (Auto) 2.6 K/uL (1.3-3.6) Monocytes # (Auto) 0.6 K/uL (0.3-1.0) Eosinophils # (Auto) 0.2 K/uL (0.0-0.5) Basophils # (Auto) 0.1 K/uL (0.0-0.1) Nucleated RBC Absolute Count (auto) 0.01 K/uL Sodium Level 140 mmol/L (137-145) Potassium Level 3.7 mmol/L (3.5-5.0) Chloride Level 102 mmol/L (98-107) Carbon Dioxide Level 28 mmol/L (22-31) Blood Urea Nitrogen 10 mg/dl (7-18) Creatinine 0.80 mg/dl (0.52-1.04) Glomerular Filtration Rate Calc > 60.0 Random Glucose 100 mg/dl (75-110) Calcium Level 9.3 mg/dl (8.4-10.2) Total Bilirubin 0.3 mg/dl (0.2-1.3) Aspartate Amino Transf (AST/SGOT) 24 U/L (0-35) Alanine Aminotransferase (ALT/SGPT) 42 U/L (0-56) Alkaline Phosphatase 70 U/L (0-126) Total Protein 7.2 g/dl (6.3-8.2) Albumin 4.2 g/dl (3.5-5.0) Chemistry Test 09/08/17 16:55 09/08/17 17:20 Urine Color Yellow Urine Clarity Slightly-cloudy Urine pH 6.0 pH (4.8-9.5) Urine Specific [place] 1.011 Urine Protein Negative mg/dL (NEGATIVE) Urine Glucose (UA) Negative mg/dL (NEGATIVE) Urine Ketones Negative mg/dL (NEGATIVE) Urine Blood Large (NEGATIVE) Urine Nitrite Negative (NEGATIVE) Urine Bilirubin Negative (NEGATIVE) Urine Urobilinogen Negative mg/dL (0.2-1.9) Urine Leukocyte Esterase Negative (NEGATIVE) Urine RBC 133 /HPF (0-2/HPF) Urine WBC 1 /HPF (0-5/HPF) Urine Squamous Epithelial Cells Many /LPF (</=FEW) Urine Bacteria Few /HPF (NONE-FEW) Urine Mucus None /HPF (NONE-FEW) Urine HCG, Qualitative Negative (NEGATIVE) White Blood Count 10.8 k/uL (4.5-11.0) Red Blood Count 5.41 M/uL (4.17-5.56) Hemoglobin 15.3 g/dL (12.0-16.0) Hematocrit 44.1 % (34.0-47.0) Mean Corpuscular Volume 81.6 fL (80.0-96.0) Mean Corpuscular Hemoglobin 28.4 pg (26.0-33.0) Mean Corpuscular Hemoglobin Concent 34.8 g/dL (32.0-36.0) Red Cell Distribution Width 14.2 % (11.5-14.5) Platelet Count 231 K/uL (150-450) Mean Platelet Volume 7.7 fL (7.2-11.1) Neutrophils (%) (Auto) 67.4 % (39.4-72.5) Lymphocytes (%) (Auto) 23.9 % (17.6-49.6) Monocytes (%) (Auto) 5.5 % (4.1-12.4) Eosinophils (%) (Auto) 2.2 % (0.4-6.7) Basophils (%) (Auto) 1.0 % (0.3-1.4) Nucleated RBC Relative Count (auto) 0.1 /100WBC Neutrophils # (Auto) 7.3 K/uL (2.0-7.4) Lymphocytes # (Auto) 2.6 K/uL (1.3-3.6) Monocytes # (Auto) 0.6 K/uL (0.3-1.0) Eosinophils # (Auto) 0.2 K/uL (0.0-0.5) Basophils # (Auto) 0.1 K/uL (0.0-0.1) Nucleated RBC Absolute Count (auto) 0.01 K/uL Glomerular Filtration Rate Calc > 60.0 Calcium Level 9.3 mg/dl (8.4-10.2) Total Bilirubin 0.3 mg/dl (0.2-1.3) Aspartate Amino Transf (AST/SGOT) 24 U/L (0-35) Alanine Aminotransferase (ALT/SGPT) 42 U/L (0-56) Alkaline Phosphatase 70 U/L (0-126) Total Protein 7.2 g/dl (6.3-8.2) Albumin 4.2 g/dl (3.5-5.0) Urinalysis Test 09/08/17 16:55 Urine Color Yellow Urine Clarity Slightly-cloudy Urine pH 6.0 pH (4.8-9.5) Urine Specific [place] 1.011 Urine Protein Negative mg/dL (NEGATIVE) Urine Glucose (UA) Negative mg/dL (NEGATIVE) Urine Ketones Negative mg/dL (NEGATIVE) Urine Blood Large (NEGATIVE) Urine Nitrite Negative (NEGATIVE) Urine Bilirubin Negative (NEGATIVE) Urine Urobilinogen Negative mg/dL (0.2-1.9) Urine Leukocyte Esterase Negative (NEGATIVE) Urine RBC 133 /HPF (0-2/HPF) Urine WBC 1 /HPF (0-5/HPF) Urine Squamous Epithelial Cells Many /LPF (</=FEW) Urine Bacteria Few /HPF (NONE-FEW) Urine Mucus None /HPF (NONE-FEW) Urine HCG, Qualitative Negative (NEGATIVE) (JOS EALFREDO MARCOS MD) EKG/Imaging Imaging ABDOMEN/PELVIS W/O CONTRAST HISTORY: Right flank pain. TECHNIQUE: CT abdomen and pelvis without intravenous contrast. One of the following dose optimization techniques was utilized in the performance of this exam: Automated exposure control; adjustment of the mA and/ or kV according to the patient's size; or use of an iterative reconstruction technique. Specific details can be referenced in the facility's radiology CT exam operational policy. CONTRAST: None. COMPARISON: None. FINDINGS: Visualized lung bases: Negative. Hepatobiliary: Mild diffuse hepatic steatosis with geographic sparing adjacent to gallbladder fossa. Spleen: Negative. Adrenals: Negative. Pancreas: Negative. Kidneys/: No urinary collecting system stone or obstruction. Unenhanced kidneys symmetric and grossly unremarkable. Uterus surgically absent. Ovaries not able to be well visualized but potentially also surgically absent. GI: No obstruction, wall thickening or surrounding inflammation. Appendix well- visualized and appears normal. Vessels/spaces/nodes: No bulky adenopathy. No free fluid. No free gas. Bones/soft tissues: Very small fat-containing umbilical hernia. Mild degenerative changes lumbar spine and sacroiliac joints. IMPRESSION: 1. No urinary collecting system stone, urinary obstruction or other findings identified to explain patient's reported right flank pain. 2. Fatty liver. Report Dictated By: Brenton Kulkarni MD at 09/08/2017 6:49 PM (JOSE ALFREDO MARCOS MD) ED Course/Re-evaluation ED Course I assumed care of this patient at shift change after discussion with Dr. Jones at sign-out. CT shows fatty liver, but no other acute abnormality. Urine was sent for culture. Started on Bactrim DS and advised to see Dr. Vogel , urology, for follow-up. Provided a prescription for a few percocet for pain control. Decision to Disposition Date: Sep 08, 2017 Decision to Disposition Time: 19:45 (JOSE ALFREDO MARCOS MD) Depart Departure Latest Vital Signs Vital Signs Date Time Temp Pulse Resp B/P (MAP) Pulse Ox O2 Delivery O2 Flow Rate FiO2 09/08/17 18:02 82 92 09/08/17 18:00 145/93 (110) 09/08/17 16:59 98.4 (JOSE ALFREDO MARCOS MD) Impression: Primary Impression: Flank pain Condition: Improved Disposition: HOME OR SELF-CARE New Scripts Oxycodone Hcl/Acetaminophen (PERCOCET 5-325 MG TABLET) 1 Each Tablet 1 EACH PO Q4H Y for PAIN, #8 TAB 0 Refills Prov: JOSE ALFREDO MARCOS MD 09/08/17 Sulfamethoxazole/Trimet 800-160 Mg Tab (BACTRIM DS TABLET) 1 Each Tablet 1 TAB PO Q12H, #10 TAB 0 Refills Prov: JOSE ALFREDO MARCOS MD 09/08/17 Patient Instructions: Flank Pain (ED) Additional Instructions: Follow-up with your regular doctor and with Dr. Vogel as planned. Take Percocet 5/325, one every 4 hours as needed for pain. Increase fluid intake. Take Bactrim DS twice a day for 5 days. MAHSA JONES DO Sep 08, 2017 16:47 JOSE ALFREDO MARCOS MD Sep 08, 2017 18:43
[2017-09-08] MEDS ORDERED: MORPHINE 4 MG/ML SDV IVP ONE (16:55)
[2017-09-08] MEDS ORDERED: NS(*) 0.9% 1000 ML BAG 1,000 ML IV ONE (16:55)
[2017-09-08] MEDS ORDERED: HYDROMORPHONE HCL 1 MG/ML SYRINGE IVP ONE (17:00)
[2017-09-08 17:27] LABS: PLATELET COUNT, AUTOMATED 231 K/uL (150-450)
[2017-09-08 18:00] VITALS: BP 145/93
--- NOTE | 2017-09-08 18:59 | RADIOLOGY IMAGING REPORT ---
FACILITY: [facility] PATIENT NAME: Madeleine Underwood : 1990 MR: [id number] V: [id number] EXAM DATE: ORDERING PHYSICIAN: MAHSA JONES TECHNOLOGIST: Location: [facility] Patient: Madeleine Underwood : 1990 Visit/Account:[id number] Date of Sevice: 09/08/2017 ABDOMEN/PELVIS W/O CONTRAST HISTORY: Right flank pain. TECHNIQUE: CT abdomen and pelvis without intravenous contrast. One of the following dose optimization techniques was utilized in the performance of this exam: Autom ated exposure control; adjustment of the mA and/or kV according to the patient's size; or use of an i terative reconstruction technique. Specific details can be referenced in the facility's radiology C T exam operational policy. CONTRAST: None. COMPARISON: None. FINDINGS: Visualized lung bases: Negative. Hepatobiliary: Mild diffuse hepatic steatosis with geographic sparing adjacent to gallbladder fossa. Spleen: Negative. Adrenals: Negative. Pancreas: Negative. Kidneys/: No urinary collecting system stone or obstruction. Unenhanced kidneys symmetric and hieu sly unremarkable. Uterus surgically absent. Ovaries not able to be well visualized but potentially al so surgically absent. GI: No obstruction, wall thickening or surrounding inflammation. Appendix well-visualized and appear s normal. Vessels/spaces/nodes: No bulky adenopathy. No free fluid. No free gas. Bones/soft tissues: Very small fat-containing umbilical hernia. Mild degenerative changes lumbar spi ne and sacroiliac joints. IMPRESSION: 1. No urinary collecting system stone, urinary obstruction or other findings identified to explain ada al's reported right flank pain. 2. Fatty liver. Report Dictated By: Brenton Kulkarni MD at 09/08/2017 6:49 PM Report E-Signed By: Brenton Kulkarni MD at 09/08/2017 6:54 PM WSN:[id number]
[2017-09-08] MEDS ORDERED: SULF-198 PO (19:47)
[2017-09-08] MEDS ORDERED: OXYC-865 PO (19:47)
== END 2017-09-08 20:01 | disposition home or self-care (01) ==
LOC: ER 16:52
DX: R10.31 Right lower quadrant pain (principal); K76.0 Fatty (change of) liver, not elsewhere classified; Z87.442 Personal history of urinary calculi
CPT/HCPCS: 74176; 81001; 81025; 85025; 87088; 96374; 99284; J1170; J7030; 82040; 82247; 82310; 82374; 82435; 82565; 82947; 84075; 84132; 84155; 84295; 84450; 84460; 84520

== ENCOUNTER 2017-09-15 12:49 | Emergency (ER) | payer MEDICAID ==
[~2017-09-15 12:49] MED LIST changes: +OXYC-865 PO
[2017-09-15 12:58] VITALS: BP 133/88
[2017-09-15] MEDS ORDERED: NS(*) 0.9% 1000 ML BAG 1,000 ML IV ONE (13:12)
[2017-09-15] MEDS ORDERED: MORPHINE 4 MG/ML SDV IVP ONE (13:15)
[2017-09-15] MEDS ORDERED: ONDANSETRON 4 MG/2 ML VIAL IVP ONE (13:15)
--- NOTE | 2017-09-15 13:20 | ER Report ---
History and Physical Time Seen By MD: 13:15 Hx. of Stated Complaint: Patient with syncopal episode while getting into shower. Fell onto right side of chest. Has right rib pain and complains of pain to back. Also had syncope on Friday and has left knee pain from that. HPI/ROS CHIEF COMPLAINT: Syncope HISTORY OF PRESENT ILLNESS: This is a 26-year-old female presents to the emergency department for syncope. Patient states that Friday evening she had a syncopal episode fell face 1st down some stairs and injured her left knee, hit her head on the wall. The patient elected not come into the emergency department for further evaluation. Patient states that then today she was in her shower stepping over the rim and had a near syncopal episode landed with her right shoulder and ribs on the side a shower, subsequently decided to come in for further evaluation. Patient states that she does have right rib pain, thoracic and lumbar discomfort. Patient also states that she has left knee pain with limited range of motion. Patient denies headaches, no nausea or vomiting. She does state that she has chest pressure as well. No dyspnea. No C-spine tenderness. The patient also states she's been taking large amounts of Tylenol to combat the pain. REVIEW OF SYSTEMS: Constitutional: No fever, no chills. Eyes: No discharge. ENT: No sore throat. Cardiovascular: As above. Respiratory: No cough, no shortness of breath. Gastrointestinal: No abdominal pain, no vomiting. Genitourinary: No hematuria. Musculoskeletal: As above. Skin: No rashes. Neurological: As above. Allergies: Coded Allergies: NSAIDS (Non-Steroidal Anti-Inflamma (Verified Allergy, Mild, UNKNOWN, ) latex (Verified Allergy, Mild, RASH, 09/15/17) prednisone (Verified Allergy, Mild, HIVES, 09/15/17) tramadol (Verified Allergy, Mild, RASH, 09/15/17) Home Meds Active Scripts Cyclobenzaprine Hcl (CYCLOBENZAPRINE HCL) 10 Mg Tablet, 5-10 MG PO TID Y for MUSCLE SPASMS, #9 TAB 0 Refills Prov:LILLY CARRANZA STEREOPTIC PROJECTION TOPOGRAPHER-BC 09/15/17 Sulfamethoxazole/Trimet 800-160 Mg Tab (BACTRIM DS TABLET) 1 Each Tablet, 1 TAB PO Q12H, #10 TAB 0 Refills Prov:JOSE ALFREDO MARCOS MD 09/08/17 Ondansetron (ZOFRAN ODT) 4 Mg Tab.rapdis, 4 MG PO Q6H Y for NAUSEA/VOMITING, # 20 TAB.MARAL 0 Refills Prov:JOSE ALFREDO MARCOS MD 07/11/17 Discontinued Scripts Oxycodone Hcl/Acetaminophen (PERCOCET 5-325 MG TABLET) 1 Each Tablet, 1 EACH PO Q4H Y for PAIN, #8 TAB 0 Refills Prov:JOSE ALFREDO MARCOS MD 09/08/17 Tramadol Hcl (TRAMADOL HCL) 50 Mg Tablet, 50 MG PO Q6H Y for PAIN, #14 TAB 0 Refills Prov:JOSE ALFREDO MARCOS MD 07/11/17 Past Medical/Surgical History The patient has a past medical and surgical history of obesity, hysterectomy, kidney infections. Reviewed Nurses Notes: Yes Smoking Status: Current: Every Day Smoker Hx Substance Use Disorder: No Hx Alcohol Use: No Constitutional Vital Sign - Last 24 Hours 09/15/17 09/15/17 09/15/17 09/15/17 12:58 13:00 13:15 13:30 Temp 98.0 Pulse 99 93 95 104 Resp 16 14 15 23 B/P (MAP) 133/88 Pulse Ox 94 96 94 92 O2 Delivery Room Air 09/15/17 13:45 Pulse 93 Resp 11 Pulse Ox 90 Intake and Output 09/15/17 09/15/17 09/16/17 15:00 23:00 07:00 Intake Total 1000 ml Balance 1000 ml Physical Exam General Appearance: The patient is alert, has no immediate need for airway protection and no signs of toxicity. Eyes: Pupils equal and round no pallor or injection. EOMs intact, no nystagmus. ENT, Mouth: Mucous membranes are moist. Respiratory: There are no retractions, lungs are clear to auscultation. Cardiovascular: Regular rate and rhythm, no murmurs, clicks or rubs. Gastrointestinal: Abdomen is round, soft and non tender, no masses, bowel sounds normal. Neurological: Alert and oriented 4. Moving all extremities. Following all commands. No focal neuro deficits. Cranial nerves II through XII intact. Skin: Abrasion to left patella. Musculoskeletal: Neck is supple non tender. Thoracic and lumbar discomfort with palpation, no crepitus, step-offs or obvious deformities. Right posterior rib pain just inferior to the right scapula. No crepitus or deformities. Extremities generalized left knee pain, mild swelling to the superior patella, no Risk, step-offs or deformities. [ ] DIFFERENTIAL DIAGNOSIS: After history and physical exam differential diagnosis was considered for syncope including but not limited to vasovagal syncope, arrhythmia, dehydration, and blood loss. Medical Decision Making Data Points Result Diagram: 09/15/17 1334 09/15/17 1334 Laboratory Hematology Test 09/15/17 13:34 09/15/17 14:23 Red Blood Count 5.42 M/uL (4.17-5.56) Mean Corpuscular Volume 81.8 fL (80.0-96.0) Mean Corpuscular Hemoglobin 28.2 pg (26.0-33.0) Mean Corpuscular Hemoglobin Concent 34.5 g/dL (32.0-36.0) Red Cell Distribution Width 14.4 % (11.5-14.5) Mean Platelet Volume 7.1 fL (7.2-11.1) Neutrophils (%) (Auto) 71.6 % (39.4-72.5) Lymphocytes (%) (Auto) 20.3 % (17.6-49.6) Monocytes (%) (Auto) 5.3 % (4.1-12.4) Eosinophils (%) (Auto) 2.1 % (0.4-6.7) Basophils (%) (Auto) 0.7 % (0.3-1.4) Nucleated RBC Relative Count (auto) 0.4 /100WBC Neutrophils # (Auto) 8.7 K/uL (2.0-7.4) Lymphocytes # (Auto) 2.5 K/uL (1.3-3.6) Monocytes # (Auto) 0.6 K/uL (0.3-1.0) Eosinophils # (Auto) 0.2 K/uL (0.0-0.5) Basophils # (Auto) 0.1 K/uL (0.0-0.1) Nucleated RBC Absolute Count (auto) 0.04 K/uL D-Dimer Quantitative (PE/DVT) < 0.27 ug/ml (0-0.50) Sodium Level 141 mmol/L (137-145) Potassium Level 3.5 mmol/L (3.5-5.0) Chloride Level 102 mmol/L (98-107) Carbon Dioxide Level 27 mmol/L (22-31) Blood Urea Nitrogen 10 mg/dl (7-18) Creatinine 0.70 mg/dl (0.52-1.04) Glomerular Filtration Rate Calc > 60.0 Random Glucose 115 mg/dl (75-110) Calcium Level 9.3 mg/dl (8.4-10.2) Total Bilirubin 0.5 mg/dl (0.2-1.3) Aspartate Amino Transf (AST/SGOT) 33 U/L (0-35) Alanine Aminotransferase (ALT/SGPT) 41 U/L (0-56) Alkaline Phosphatase 78 U/L (0-126) Troponin I < 0.012 ng/ml Total Protein 7.2 g/dl (6.3-8.2) Albumin 4.2 g/dl (3.5-5.0) Human Chorionic Gonadotropin, Qual Negative (NEGATIVE) Acetaminophen Level < 10 ug/ml Urine Color Yellow Urine Clarity Slightly-cloudy Urine pH 6.0 pH (4.8-9.5) Urine Specific [place] 1.017 Urine Protein Negative mg/dL (NEGATIVE) Urine Glucose (UA) Negative mg/dL (NEGATIVE) Urine Ketones Negative mg/dL (NEGATIVE) Urine Blood Large (NEGATIVE) Urine Nitrite Negative (NEGATIVE) Urine Bilirubin Negative (NEGATIVE) Urine Urobilinogen Negative mg/dL (0.2-1.9) Urine Leukocyte Esterase Negative (NEGATIVE) Urine RBC 72 /HPF (0-2/HPF) Urine WBC 2 /HPF (0-5/HPF) Urine Squamous Epithelial Cells Many /LPF (</=FEW) Urine Bacteria Few /HPF (NONE-FEW) Urine Mucus Few /HPF (NONE-FEW) Chemistry Test 09/15/17 13:34 09/15/17 14:23 White Blood Count 12.1 k/uL (4.5-11.0) Red Blood Count 5.42 M/uL (4.17-5.56) Hemoglobin 15.3 g/dL (12.0-16.0) Hematocrit 44.3 % (34.0-47.0) Mean Corpuscular Volume 81.8 fL (80.0-96.0) Mean Corpuscular Hemoglobin 28.2 pg (26.0-33.0) Mean Corpuscular Hemoglobin Concent 34.5 g/dL (32.0-36.0) Red Cell Distribution Width 14.4 % (11.5-14.5) Platelet Count 255 K/uL (150-450) Mean Platelet Volume 7.1 fL (7.2-11.1) Neutrophils (%) (Auto) 71.6 % (39.4-72.5) Lymphocytes (%) (Auto) 20.3 % (17.6-49.6) Monocytes (%) (Auto) 5.3 % (4.1-12.4) Eosinophils (%) (Auto) 2.1 % (0.4-6.7) Basophils (%) (Auto) 0.7 % (0.3-1.4) Nucleated RBC Relative Count (auto) 0.4 /100WBC Neutrophils # (Auto) 8.7 K/uL (2.0-7.4) Lymphocytes # (Auto) 2.5 K/uL (1.3-3.6) Monocytes # (Auto) 0.6 K/uL (0.3-1.0) Eosinophils # (Auto) 0.2 K/uL (0.0-0.5) Basophils # (Auto) 0.1 K/uL (0.0-0.1) Nucleated RBC Absolute Count (auto) 0.04 K/uL D-Dimer Quantitative (PE/DVT) < 0.27 ug/ml (0-0.50) Glomerular Filtration Rate Calc > 60.0 Calcium Level 9.3 mg/dl (8.4-10.2) Total Bilirubin 0.5 mg/dl (0.2-1.3) Aspartate Amino Transf (AST/SGOT) 33 U/L (0-35) Alanine Aminotransferase (ALT/SGPT) 41 U/L (0-56) Alkaline Phosphatase 78 U/L (0-126) Troponin I < 0.012 ng/ml Total Protein 7.2 g/dl (6.3-8.2) Albumin 4.2 g/dl (3.5-5.0) Human Chorionic Gonadotropin, Qual Negative (NEGATIVE) Acetaminophen Level < 10 ug/ml Urine Color Yellow Urine Clarity Slightly-cloudy Urine pH 6.0 pH (4.8-9.5) Urine Specific [place] 1.017 Urine Protein Negative mg/dL (NEGATIVE) Urine Glucose (UA) Negative mg/dL (NEGATIVE) Urine Ketones Negative mg/dL (NEGATIVE) Urine Blood Large (NEGATIVE) Urine Nitrite Negative (NEGATIVE) Urine Bilirubin Negative (NEGATIVE) Urine Urobilinogen Negative mg/dL (0.2-1.9) Urine Leukocyte Esterase Negative (NEGATIVE) Urine RBC 72 /HPF (0-2/HPF) Urine WBC 2 /HPF (0-5/HPF) Urine Squamous Epithelial Cells Many /LPF (</=FEW) Urine Bacteria Few /HPF (NONE-FEW) Urine Mucus Few /HPF (NONE-FEW) Coagulation Test 09/15/17 13:34 D-Dimer Quantitative (PE/DVT) < 0.27 ug/ml Toxicology Test 09/15/17 13:34 Acetaminophen Level < 10 ug/ml Urinalysis Test 09/15/17 14:23 Urine Color Yellow Urine Clarity Slightly-cloudy Urine pH 6.0 pH (4.8-9.5) Urine Specific [place] 1.017 Urine Protein Negative mg/dL (NEGATIVE) Urine Glucose (UA) Negative mg/dL (NEGATIVE) Urine Ketones Negative mg/dL (NEGATIVE) Urine Blood Large (NEGATIVE) Urine Nitrite Negative (NEGATIVE) Urine Bilirubin Negative (NEGATIVE) Urine Urobilinogen Negative mg/dL (0.2-1.9) Urine Leukocyte Esterase Negative (NEGATIVE) Urine RBC 72 /HPF (0-2/HPF) Urine WBC 2 /HPF (0-5/HPF) Urine Squamous Epithelial Cells Many /LPF (</=FEW) Urine Bacteria Few /HPF (NONE-FEW) Urine Mucus Few /HPF (NONE-FEW) EKG/Imaging EKG Interpretation 12 lead EKG: Time of EKG 1325. Rhythm: Normal sinus rhythm, ventricular rate 90bpm. [place]: normal QRS: normal ST segments: No ST depression or elevation identified. Inverted T-wave in lead 3. Flattened T waves in V3. No previous EKG to compare to. Imaging Exam type: CHEST PA AND LAT History: syncope Comparison: Single view chest March 29, 2017. Findings: The lungs are free of acute effusions infiltrates or edema. The cardiac silhouette is normal in size. The trachea is in midline. There is no evidence of a pneumothorax or pneumomediastinum. IMPRESSION: 1. No acute cardiac pulmonary process seen Report Dictated By: Nikki Corbin MD at 09/15/2017 2:41 PM Report E-Signed By: Nikki Corbin MD at 09/15/2017 2:42 PM N:AMICIVN Exam type: KNEE 4 VIEW LEFT History: Syncope, passed out downstairs Comparison: None. Findings: Four views the left knee demonstrate no evidence of acute fracture or dislocation. No significant arthritic changes are seen. No radiopaque soft tissue foreign bodies identified. There appears be mild soft tissue swelling over the anterior aspect of the left knee IMPRESSION: 1. Mild soft tissue swelling over the anterior aspect left knee although no evidence of acute fracture or dislocation Report Dictated By: Nikki Corbin MD at 09/15/2017 2:35 PM Report E-Signed By: Nikki Corbin MD at 09/15/2017 2:36 PM WSN:[email or web address] Exam type: LUMBAR SPINE 4 VIEWS History: syncope, passed out downstairs Comparison: CT abdomen pelvis September 08, 2017. Findings: There are five nonrib-bearing lumbar-type vertebral bodies present. There is no evidence of acute fractures or subluxations. Tiny anterior osteophytes are noted throughout the lumbar spine. The disc spaces appear well-preserved. IMPRESSION: 1. No evidence of acute fracture or subluxation in the lumbar spine Report Dictated By: Nikki Corbin MD at 09/15/2017 2:32 PM Report E-Signed By: Nikki Corbin MD at 09/15/2017 2:35 PM WSN:[email or web address] Exam type: RIBS RIGHT History: Syncope, passed out downstairs Comparison: Two view chest performed today. Findings: There is no evidence of an acute right rib fracture. No evidence of a pneumothorax, pleural effusion or right-sided pulmonary consolidation. IMPRESSION: 1. No radiographic evidence of an acute right rib fracture. If patient's symptoms persist follow-up imaging in several weeks may be helpful to evaluate for potential occult fracture Report Dictated By: Nikki Corbin MD at 09/15/2017 2:38 PM Report E-Signed By: Nikki Corbin MD at 09/15/2017 2:41 PM WSN:[email or web address] Exam type: THORACIC SPINE 3 VIEWS History: Syncope, passed out downstairs Comparison: None. Findings: There is no evidence of acute fracture or subluxation in the thoracic spine. Tiny anterior osteophytes are seen in the lower thoracic region. The disc spaces appear well-preserved IMPRESSION: 1. No evidence of acute fracture or subluxation in the thoracic spine Report Dictated By: Nikki Corbin MD at 09/15/2017 2:36 PM Report E-Signed By: Nikki Corbin MD at 09/15/2017 2:38 PM WSN:[email or web address] ED Course/Re-evaluation Clinical Indication for ER IV: Hydration, IV Access ED Course The patient was admitted to room. Extremities were obtained. Differential diagnoses were considered. An IV was started. A 1 L normal saline bolus was given. CBC, CMP, troponin and d-dimer obtained. Lab studies unremarkable. Negative d-dimer, negative troponin. UA unremarkable with exception of blood, details patient that this could be secondary to her fall with little bit of hematuria, patient states this is happened before. X-rays for thoracic, lumbar, react, chest and left knee were negative for any acute osseous abnormalities. I did review these with the patient as well. Due to the patient we can place her in a knee immobilizer for her left leg, she's agreed to this. Patient declines crutches. Patient was given 4 mg IV Zofran, 4 mg IV morphine. Patient was given a prescription for Flexeril. The patient states she is feeling better. The patient had not questions or concerns at this time. Did tell her I do not have a clear examination as to why she is having syncopal episodes collected suggested a Holter monitor which she agreed to. Was placed on a 24 hour Holter monitor the results will be sent to her primary care provider in [place], she does have a follow-up appointment scheduled for Friday. She was instructed to return to ER for any other concerns or worsening symptoms. Patient was in agreement for splenic care and discharged home. Decision to Disposition Date: Sep 15, 2017 Decision to Disposition Time: 15:21 Depart Departure Latest Vital Signs Vital Signs Date Time Temp Pulse Resp B/P (MAP) Pulse Ox O2 Delivery O2 Flow Rate FiO2 09/15/17 13:45 93 11 90 09/15/17 12:58 98.0 133/88 Room Air Impression: Primary Impression: Syncope Additional Impressions: Rib pain on right side Left knee pain Condition: Improved Disposition: HOME OR SELF-CARE New Scripts Cyclobenzaprine Hcl (CYCLOBENZAPRINE HCL) 10 Mg Tablet 5-10 MG PO TID Y for MUSCLE SPASMS, #9 TAB 0 Refills Prov: LILLY CARRANZA Angel LUGO-BC 09/15/17 Patient Instructions: Knee Pain (ED), Near Syncope (ED), Rib Contusion (ED), Syncope (ED) Additional Instructions: Your EKG and blood work all look normal, you do have some blood in your urine which could be secondary to the fall, be sure to have your urine rechecked at this time. Nothing broken or misaligned on your x-rays. Keep the Holter monitor on for the next 24 hours, the results will go to your doctor in [place]. Be sure to drink plenty of water. Get plenty of rest. Wear the Knee brace for comfort. Take Tylenol as needed for pain. Take the Flexeril for severe pain. Use a pillow to splint the rbis. Return to the ED for any other concerns or worsening symptoms. Problem Qualifiers Primary Impression: Syncope Syncope type: unspecified Qualified Codes: R55 - Syncope and collapse Additional Impressions: Left knee pain Chronicity: acute Qualified Codes: M25.562 - Pain in left knee BRAEDENMARCK SWAINSHILOH Ortiz STEREOPTIC PROJECTION TOPOGRAPHER- Sep 15, 2017 13:20
--- NOTE | 2017-09-15 13:36 | EKG ---
[place] [facility] [place] NAME: SARA SPENCER : [id number] MR: [id number] V: [id number] EXAM DATE: ORDERING PHYSICIAN: LILLY CARRANZA TECHNOLOGIST: IVONE Spann Reason : SYNCOPE Blood Pressure : / mmHG Vent. Rate : 098 BPM Atrial Rate : 098 BPM P-R Int : 172 ms QRS Dur : 094 ms QT Int : 352 ms P-R-T Axes : 055 -08 008 degrees QTc Int : 449 ms Normal sinus rhythm Possible Anterior infarct , age undetermined Abnormal ECG No previous ECGs available Confirmed by MARILU RUCKER ([id number]) on 09/15/2017 4:12:40 PM Referred By: Confirmed By:MARILU RUCKRE
[2017-09-15 13:43] LABS: PLATELET COUNT, AUTOMATED 255 K/uL (150-450)
--- NOTE | 2017-09-15 14:40 | RADIOLOGY IMAGING REPORT ---
FACILITY: [facility] - [place] PATIENT NAME: Madeleine Underwood : 1990 MR: [id number] V: [id number] EXAM DATE: ORDERING PHYSICIAN: LILLY CARRANZA TECHNOLOGIST: Location: [facility] [place] Patient: Madeleine Underwood : 1990 Visit/Account:[id number] Date of Sevice: 09/15/2017 Exam type: LUMBAR SPINE 4 VIEWS History: syncope, passed out downstairs Comparison: CT abdomen pelvis September 08, 2017. Findings: There are five nonrib-bearing lumbar-type vertebral bodies present. There is no evidence of acute fr actures or subluxations. Tiny anterior osteophytes are noted throughout the lumbar spine. The disc spaces appear well-preserved. IMPRESSION: 1. No evidence of acute fracture or subluxation in the lumbar spine Report Dictated By: Nikki Corbin MD at 09/15/2017 2:32 PM Report E-Signed By: Nikki Corbin MD at 09/15/2017 2:35 PM WSN:JOSE AVLuis Angel
--- NOTE | 2017-09-15 14:41 | RADIOLOGY IMAGING REPORT ---
FACILITY: [facility] [place] PATIENT NAME: Madeleine Underwood : 1990 MR: [id number] V: [id number] EXAM DATE: ORDERING PHYSICIAN: LILLY CARRANZA TECHNOLOGIST: Location: [facility] Patient: Madeleine Underwood : 1990 Visit/Account:[id number] Date of Sevice: 09/15/2017 Exam type: KNEE 4 VIEW LEFT History: Syncope, passed out downstairs Comparison: None. Findings: Four views the left knee demonstrate no evidence of acute fracture or dislocation. No significant ar thritic changes are seen. No radiopaque soft tissue foreign bodies identified. There appears be mil d soft tissue swelling over the anterior aspect of the left knee IMPRESSION: 1. Mild soft tissue swelling over the anterior aspect left knee although no evidence of acute fractu re or dislocation Report Dictated By: Nikki Corbin MD at 09/15/2017 2:35 PM Report E-Signed By: Nikki Corbin MD at 09/15/2017 2:36 PM WSN:[email or web address]
--- NOTE | 2017-09-15 14:42 | RADIOLOGY IMAGING REPORT ---
FACILITY: [facility] - [place] PATIENT NAME: Madeleine Underwood : 1990 MR: [id number] V: [id number] EXAM DATE: ORDERING PHYSICIAN: LILLY CARRANZA TECHNOLOGIST: Location: [facility] [place] Patient: Madeleine Underwood : 1990 Visit/Account:[id number] Date of Sevice: 09/15/2017 Exam type: THORACIC SPINE 3 VIEWS History: Syncope, passed out downstairs Comparison: None. Findings: There is no evidence of acute fracture or subluxation in the thoracic spine. Tiny anterior osteophyt es are seen in the lower thoracic region. The disc spaces appear well-preserved IMPRESSION: 1. No evidence of acute fracture or subluxation in the thoracic spine Report Dictated By: Nikki Corbin MD at 09/15/2017 2:36 PM Report E-Signed By: Nikki Corbin MD at 09/15/2017 2:38 PM WSN:[email or web address]
--- NOTE | 2017-09-15 14:44 | RADIOLOGY IMAGING REPORT ---
FACILITY: [facility] - [place] PATIENT NAME: Madeleine Underwood : 1990 MR: [id number] V: [id number] EXAM DATE: ORDERING PHYSICIAN: LILLY CARRANZA TECHNOLOGIST: Location: [facility] - [place], [place] Patient: Madeleine Underwood : 1990 Visit/Account:[id number] Date of Sevice: 09/15/2017 Exam type: RIBS RIGHT History: Syncope, passed out downstairs Comparison: Two view chest performed today. Findings: There is no evidence of an acute right rib fracture. No evidence of a pneumothorax, pleural effusion or right-sided pulmonary consolidation. IMPRESSION: 1. No radiographic evidence of an acute right rib fracture. If patient's symptoms persist follow-up imaging in several weeks may be helpful to evaluate for potential occult fracture Report Dictated By: Nikki Corbin MD at 09/15/2017 2:38 PM Report E-Signed By: Nikki Corbin MD at 09/15/2017 2:41 PM WSN:[email or web address]
--- NOTE | 2017-09-15 14:46 | RADIOLOGY IMAGING REPORT ---
FACILITY: [facility] PATIENT NAME: Madeleine Underwood : 1990 MR: [id number] V: [id number] EXAM DATE: ORDERING PHYSICIAN: LILLY CARRANZA TECHNOLOGIST: Location: [facility] Patient: Madeleine Underwood : 1990 Visit/Account:[id number] Date of Sevice: 09/15/2017 Exam type: CHEST PA AND LAT History: syncope Comparison: Single view chest March 29, 2017. Findings: The lungs are free of acute effusions infiltrates or edema. The cardiac silhouette is normal in size . The trachea is in midline. There is no evidence of a pneumothorax or pneumomediastinum. IMPRESSION: 1. No acute cardiac pulmonary process seen Report Dictated By: Nikki Corbin MD at 09/15/2017 2:41 PM Report E-Signed By: Nikki Corbin MD at 09/15/2017 2:42 PM WSN:[email or web address]
[2017-09-15] MEDS ORDERED: CYCL10TA29 PO (15:15)
== END 2017-09-15 15:46 | disposition home or self-care (01) ==
LOC: ER 12:57
DX: R55 Syncope and collapse (principal); R07.81 Pleurodynia; M25.562 Pain in left knee
CPT/HCPCS: 71046; 71100; 72072; 72120; 73564; 81001; 84484; 84703; 85025; 85379; 93005; 93225; 96361; 96374; 96375; 99285; G0480; J2270; J2405; J7030; L1830; 80329; 82040; 82247; 82310; 82374; 82435; 82565; 82947; 84075; 84132; 84155; 84295; 84450; 84460; 84520

== ENCOUNTER 2018-02-06 00:41 | Emergency (ER) | payer MEDICAID ==
[~2018-02-06 00:41] MED LIST changes: +CYCL10TA29 PO; -HYDR-4309 PO; +HYDR-653 PO
--- NOTE | 2018-02-06 00:44 | ER Report ---
History and Physical Time Seen By MD: 00:43 HPI/ROS CHIEF COMPLAINT: Chest pain HISTORY OF PRESENT ILLNESS: 27-year-old female presents ambulatory to the ER complaining of sudden onset of sharp chest pain. She was out with friends having dinner and drinks. She had one alcoholic drink. She developed sharp pain in her bilateral rib cage radiating to her sternum. Patient notes increased pain with deep inspiration. She's had no recent URI cough sore throat fever or chills. Patient recalls no injury. Patient denies a history of GERD symptoms. She denies consumption of spicy or greasy food. Patient unfortunately has allergies to NSAIDs and aspirin. She is on a treatment plan here restricting use of opiates and benzos. REVIEW OF SYSTEMS: Respiratory: No cough, no dyspnea. Cardiovascular: As above Gastrointestinal: No vomiting, no abdominal pain. Musculoskeletal: No back pain. Allergies: Coded Allergies: NSAIDS (Non-Steroidal Anti-Inflamma (Verified Allergy, Mild, UNKNOWN, 09/15/17) latex (Verified Allergy, Mild, RASH, 09/15/17) prednisone (Verified Allergy, Mild, HIVES, 09/15/17) tramadol (Verified Allergy, Mild, RASH, 09/15/17) Home Meds Active Scripts Cyclobenzaprine Hcl (CYCLOBENZAPRINE HCL) 10 Mg Tablet, 5-10 MG PO TID PRN for MUSCLE SPASMS, #9 TAB 0 Refills Prov:LILLY CARRANZA [employer]- 09/15/17 Sulfamethoxazole/Trimet 800-160 Mg Tab (BACTRIM DS TABLET) 1 Each Tablet, 1 TAB PO Q12H, #10 TAB 0 Refills Prov:JOSE ALFREDO MARCOS MD 09/08/17 Ondansetron (ZOFRAN ODT) 4 Mg Tab.rapdis, 4 MG PO Q6H PRN for NAUSEA/VOMITING, #20 TAB.MARAL 0 Refills Prov:JOSE ALFREDO MARCOS MD 07/11/17 Reviewed Nurses Notes: Yes Old Medical Records Reviewed: Yes Smoking Status: Current: Every Day Smoker Hx Substance Use Disorder: No Hx Alcohol Use: No Constitutional Vital Sign - Last 24 Hours 02/06/18 02/06/18 02/06/18 02/06/18 00:45 00:46 01:15 01:30 Temp 97.9 Pulse 112 Resp 18 B/P (MAP) 148/101 148/101 (117) 141/93 (109) 122/78 (93) Pulse Ox 98 02/06/18 02/06/18 01:41 02:00 Pulse 97 Resp 21 B/P (MAP) 115/69 (84) Physical Exam General Appearance: The patient is alert, has no immediate need for airway protection and no current signs of toxicity. Mild distress, slightly pale appearing, skin warm and dry, vital signs stable, afebrile, mild tachycardia HEENT: Pupils equal and round no injection. TMs normal, oropharynx without redness or exudate Respiratory: Chest is non tender, lungs are clear to auscultation. There is chest wall tenderness with anterior posterior compression as well as lateral compression of the ribs. Cardiac: regular rate and rhythm Gastrointestinal: Abdomen is soft and non tender, no masses, bowel sounds normal. Musculoskeletal: Neck: Neck is supple and non tender. No lymphadenopathy Extremities have full range of motion and are non tender. No edema, no calf tenderness Skin: No rashes or lesions. DIFFERENTIAL DIAGNOSIS: After history and physical exam differential diagnosis was considered for chest pain including but not limited to myocardial ischemia, pericarditis pulmonary embolus, chest wall pain, pleural inflammation, anxiety, GERD, food poisoning and pulmonary infectious causes. Medical Decision Making Data Points Result Diagram: 02/06/18 0106 02/06/18 0106 Laboratory Hematology Test 02/06/18 01:06 Red Blood Count 5.37 M/uL (4.17-5.56) Mean Corpuscular Volume 82.8 fL (80.0-96.0) Mean Corpuscular Hemoglobin 27.9 pg (26.0-33.0) Mean Corpuscular Hemoglobin Concent 33.7 g/dL (32.0-36.0) Red Cell Distribution Width 13.5 % (11.5-14.5) Mean Platelet Volume 7.2 fL (7.2-11.1) Neutrophils (%) (Auto) 65.9 % (39.4-72.5) Lymphocytes (%) (Auto) 23.8 % (17.6-49.6) Monocytes (%) (Auto) 7.8 % (4.1-12.4) Eosinophils (%) (Auto) 1.6 % (0.4-6.7) Basophils (%) (Auto) 0.9 % (0.3-1.4) Nucleated RBC Relative Count (auto) 0.0 /100WBC Neutrophils # (Auto) 7.9 K/uL (2.0-7.4) Lymphocytes # (Auto) 2.9 K/uL (1.3-3.6) Monocytes # (Auto) 0.9 K/uL (0.3-1.0) Eosinophils # (Auto) 0.2 K/uL (0.0-0.5) Basophils # (Auto) 0.1 K/uL (0.0-0.1) Nucleated RBC Absolute Count (auto) 0.00 K/uL Peripheral Blood Smear Yes Y/N D-Dimer Quantitative (PE/DVT) < 0.27 ug/ml (0-0.50) Sodium Level 141 mmol/L (137-145) Potassium Level 3.9 mmol/L (3.5-5.0) Chloride Level 103 mmol/L (98-107) Carbon Dioxide Level 28 mmol/L (22-31) Blood Urea Nitrogen 11 mg/dl (7-18) Creatinine 0.60 mg/dl (0.52-1.04) Glomerular Filtration Rate Calc > 60.0 Random Glucose 102 mg/dl (75-110) Calcium Level 9.3 mg/dl (8.4-10.2) Total Bilirubin 0.2 mg/dl (0.2-1.3) Aspartate Amino Transf (AST/SGOT) 25 U/L (0-35) Alanine Aminotransferase (ALT/SGPT) 46 U/L (0-56) Alkaline Phosphatase 83 U/L (0-126) Troponin I < 0.012 ng/ml B-Type Natriuretic Peptide < 5 pg/ml (0-100) Total Protein 7.3 g/dl (6.3-8.2) Albumin 4.1 g/dl (3.5-5.0) Chemistry Test 02/06/18 01:06 White Blood Count 12.1 k/uL (4.5-11.0) Red Blood Count 5.37 M/uL (4.17-5.56) Hemoglobin 15.0 g/dL (12.0-16.0) Hematocrit 44.4 % (34.0-47.0) Mean Corpuscular Volume 82.8 fL (80.0-96.0) Mean Corpuscular Hemoglobin 27.9 pg (26.0-33.0) Mean Corpuscular Hemoglobin Concent 33.7 g/dL (32.0-36.0) Red Cell Distribution Width 13.5 % (11.5-14.5) Platelet Count 255 K/uL (150-450) Mean Platelet Volume 7.2 fL (7.2-11.1) Neutrophils (%) (Auto) 65.9 % (39.4-72.5) Lymphocytes (%) (Auto) 23.8 % (17.6-49.6) Monocytes (%) (Auto) 7.8 % (4.1-12.4) Eosinophils (%) (Auto) 1.6 % (0.4-6.7) Basophils (%) (Auto) 0.9 % (0.3-1.4) Nucleated RBC Relative Count (auto) 0.0 /100WBC Neutrophils # (Auto) 7.9 K/uL (2.0-7.4) Lymphocytes # (Auto) 2.9 K/uL (1.3-3.6) Monocytes # (Auto) 0.9 K/uL (0.3-1.0) Eosinophils # (Auto) 0.2 K/uL (0.0-0.5) Basophils # (Auto) 0.1 K/uL (0.0-0.1) Nucleated RBC Absolute Count (auto) 0.00 K/uL Peripheral Blood Smear Yes Y/N D-Dimer Quantitative (PE/DVT) < 0.27 ug/ml (0-0.50) Glomerular Filtration Rate Calc > 60.0 Calcium Level 9.3 mg/dl (8.4-10.2) Total Bilirubin 0.2 mg/dl (0.2-1.3) Aspartate Amino Transf (AST/SGOT) 25 U/L (0-35) Alanine Aminotransferase (ALT/SGPT) 46 U/L (0-56) Alkaline Phosphatase 83 U/L (0-126) Troponin I < 0.012 ng/ml B-Type Natriuretic Peptide < 5 pg/ml (0-100) Total Protein 7.3 g/dl (6.3-8.2) Albumin 4.1 g/dl (3.5-5.0) Coagulation Test 02/06/18 01:06 D-Dimer Quantitative (PE/DVT) < 0.27 ug/ml EKG/Imaging EKG Interpretation 12 lead EK Rhythm: Sinus tachycardia Butler: normal QRS: normal ST segments: normal, comparison to previous EKG dated 09/15/17, no significant change Imaging X-ray: Two-view chest x-ray was obtained. I viewed the images myself on the PACS system. My interpretation of the images is: No infiltrate, no effusion, normal mediastinum., Comparison to previous chest x-ray dated 09/15/17, no significant change. The radiologist interpretation had no clinically significant variation from this interpretation. ED Course/Re-evaluation Clinical Indication for ER IV: IV Access ED Course Patient was minute to an examination room. H&P was done. The differential diagnosis was considered. On clinical examination. Patient has chest wall tenderness. Patient has a productive cough and a viral symptoms. She likely has pleurisy. Patient at 12 his allergy to prednisone and NSAIDs. She is on at and plan restricting opiate pain relievers. Patient advised Tylenol and a heating pad for relief. She states a heating pad made worse. She is advised to try ice. Patient advised to follow-up with primary care if unimproved in 3-5 days. Decision to Disposition Date: Feb 06, 2018 Decision to Disposition Time: 01:12 Depart Departure Latest Vital Signs Vital Signs Date Time Temp Pulse Resp B/P (MAP) Pulse Ox O2 Delivery O2 Flow Rate FiO2 02/06/18 02:00 115/69 (84) 02/06/18 01:41 97 21 02/06/18 00:45 97.9 98 Impression: Primary Impression: Pleuritic chest pain Additional Impression: Tachycardia Condition: Improved Disposition: HOME OR SELF-CARE Patient Instructions: Pleurisy (ED) Additional Instructions: Apply heating pad to the affected area on her chest wall Take Tylenol as needed for pain relief Follow-up with primary care if unimproved in 3-5 days. Problem Qualifiers CIPRIANO KERR DO Feb 06, 2018 00:44
[2018-02-06 01:17] LABS: PLATELET COUNT, AUTOMATED 255 K/uL (150-450)
[2018-02-06] MEDS ORDERED: ONDANSETRON 4 MG ODT TABDP SL ONE (01:25)
[2018-02-06] MEDS ORDERED: ACETAMINOPHEN 325 MG TAB PO ONE (01:25)
--- NOTE | 2018-02-06 01:29 | RADIOLOGY IMAGING REPORT ---
FACILITY: [facility] [place] PATIENT NAME: Madeleine Underwood : 1990 MR: [id number] V: [id number] EXAM DATE: ORDERING PHYSICIAN: CIPRIANO KERR TECHNOLOGIST: Location: [facility] Patient: Madeleine Underwood : 1990 Visit/Account:[id number] Date of Sevice: 02/06/2018 CHEST PA AND LAT COMPARISONS: September 15, 2017 ADDITIONAL PERTINENT HISTORY: Acute chest pain with history of smoking. FINDINGS: Cardiomediastinal silhouette: Negative. Pulmonary vasculature: Negative. Lung chaney: Negative. Pleural spaces: Negative. Osseous structures: Negative. Surrounding soft tissues: Negative. IMPRESSION: No evidence of acute cardiopulmonary disease. Report Dictated By: Reinier Christensen MD at 02/06/2018 1:25 AM Report E-Signed By: Reinier Christensen MD at 02/06/2018 1:25 AM WSN:[id number]
--- NOTE | 2018-02-06 01:55 | EKG ---
FACILITY: [facility] PATIENT NAME: SARA SPENCER : [id number] MR: [id number] V: [id number] EXAM DATE: ORDERING PHYSICIAN: CIPRIANO KERR TECHNOLOGIST: IZABELA Test Reason : CHEST PAIN Blood Pressure : / mmHG Vent. Rate : 101 BPM Atrial Rate : 101 BPM P-R Int : 174 ms QRS Dur : 084 ms QT Int : 346 ms P-R-T Axes : 068 001 049 degrees QTc Int : 448 ms Sinus tachycardia Otherwise normal ECG When compared with ECG of 15-SEP-2017 13:25, Borderline criteria for Anterior infarct are no longer present T wave amplitude has increased in Anterior leads Confirmed by RABIA FERGUSON ([id number]) on 02/06/2018 6:49:20 AM Referred By: Confirmed By:RABIA FERGUSON
[2018-02-06 02:00] VITALS: BP 115/69
== END 2018-02-06 02:05 | disposition home or self-care (01) ==
LOC: ER 01:06
DX: R09.1 Pleurisy (principal); R00.0 Tachycardia, unspecified
CPT/HCPCS: 71046; 83880; 84484; 85025; 85379; 93005; 99284; S0119; 82040; 82247; 82310; 82374; 82435; 82565; 82947; 84075; 84132; 84155; 84295; 84450; 84460; 84520